=== PATIENT | female | born 1955 | race African-American/Black ===

== ENCOUNTER 2016-10-16 15:58 | Inpatient (IN) ==
[2016-10-16] MEDS ORDERED: ALBUTEROL/IPRATROPIUM 3 ML NEB RESP TX STA (16:27)
--- NOTE | 2016-10-16 16:33 | Emergency Department Note ---
Arrival - Arrival Chief Complaint: Shortness of Breath Stated Complaint: SWELLING, MISSED WHOLE WEEK OF DIALYSIS ED Nursing Triage Note: patient states that she is sob. states that she is on dialysis and hasn't had dialysis for a week. she is from [place] and has recently located here Mode of Arrival: Wheelchair Limitations: No Limitations Source: Patient Time Seen by Provider: 10/16/16 16:27 - History of Present Illness HPI Narrative: This 61-year-old black female presents after relocating from [place] without any dialysis for the past week, complaining of shortness of breath. The patient has had progressive dyspnea on exertion, dyspnea at rest, PND, orthopnea, and mild peripheral edema over the last week since her last dialysis. The patient states she had to relocate in a hurry and is thus not set up with any dialysis situation in our area. She denies any chest pain in association with this. Of note she likewise has a history of a brain tumor which she relates is not cancerous but was associated with some swelling for which she took medication as recently as this fall but is on nothing now. She does state she does have frequent headaches but no focal deficits or visual changes. Currently in bed at rest she is in no acute distress. Onset (ago): week(s) (1 week since progressive onset of symptoms) Consistency: constant Severity: moderate Allergies/Adverse Reactions: Allergies Allergy/AdvReac Type Severity Reaction Status Date / Time allopurinol AdvReac Unknown/Unable Verified 12/30/15 07:15 to obtain naproxen AdvReac Unknown/Unable Verified 12/30/15 07:15 to obtain Home Medications: Home Medications Medication Instructions Recorded Confirmed Type Acetaminophen Tab [Tylenol Tab] 650 mg PO Q4H PRN 10/16/16 10/16/16 History Amlodipine Besylate 5 mg PO DAILY 10/16/16 10/16/16 History Calcium Acetate [Phoslo] 2,001 mg PO TID W/MEALS 10/16/16 10/16/16 History Calcium Acetate [Phoslo] 667 - 1,334 mg PO WITH SNACKS 10/16/16 10/16/16 History Carvedilol 12.5 mg PO BID 10/16/16 10/16/16 History Divalproex ER [Depakote ER] 500 mg PO BID 10/16/16 10/16/16 History Gabapentin Cap/Tab [Neurontin 100 mg PO DAILY 10/16/16 10/16/16 History Cap/Tab] Omeprazole 20 mg PO DAILY 10/16/16 10/16/16 History Review of System - Review of System 12 point system: reviewed and no additional remarkable complaints except as stated - Review of System Constitutional: Present: as per HPI Respiratory: Present: as per HPI Gastrointestinal: Present: as per HPI Neurological: Present: as per HPI Medical,Surgical,& Family Hx - Medical History Neurology: History of: Cerebrovascular Accident Renal: History of: Dialysis (Tuesday, , Saturdays), Renal Failure Musculoskeletal: History of: Back/Neck Problems - Social History Smoking Status: Never smoker Frequency of Alcohol Use: None Type of Drug Use: None Exam Physical Examination: GENERAL: Obese black female in no acute distress. HEENT: Normocephalic. No trauma. Moist mucous membranes. EOMI. PERRLA. NECK: Supple. No adenopathy. JVD to the angle of the jaw at 30 CARDIAC: Regular. No murmurs. Heart rate 68 CHEST: Clear to auscultation. No respiratory distress. O2 sat 93% ABDOMEN: Soft. Nontender. Active bowel sounds. EXTREMITIES: No trauma. Normal ROM. No pedal edema. Fistula right upper extremity with good thrill SKIN: No diaphoresis. No rash. NEURO: Alert. Oriented 3. Motor, sensory, vibratory intact. No focal deficits. Vital Signs: Vital Signs Temperature 97.9 F 10/16/16 16:07 Pulse Rate 69 10/16/16 16:24 Respiratory Rate 16 10/16/16 16:24 Blood Pressure 173/98 10/16/16 16:24 O2 Sat by Pulse Oximetry 94 L 10/16/16 16:24 Course - Reevaluation(s) Reevaluation #1: Advised patient she would have to be admitted for dialysis - Consultations Consultation #1: Admitted to hospitalist service for further evaluation and treatment. Procedures - Central Line Placement Right Femoral Consent Obtained: written consent Time Out Performed: Yes Patient Placed on Monitor/Pulse Ox: Yes Prep: mask, gown, gloves Central Line Prep: Povidone-Iodine 1% Local Anesthetic: lidocaine 1% Amount of anesthesia used (mL): 6 Ultrasound Used for Placement: No Central Line Lumen Inserted: triple Post Procedure: sutured in place, good blood return, all ports aspirated, flushed, capped, sterile dressing applied Results - Labs CBC & BMP: 10/16/16 16:40 10/16/16 16:40 - Impressions EKG: Sinus rhythm at 64. Normal [place] interval QRS duration. Nonspecific ST changes. No acute injury pattern noted. - Diagnostic Findings Procedure: Chest x-ray: image reviewed by me, report reviewed by me ( cardiomegaly without pulmonary edema.) Disposition Clinical Impression: chronic renal failure, congestive heart failure, dialysis dependent, hypertension Case discussed with: patient, patient's family Disposition: Still a Patient Condition: Guarded Time of Disposition: 18:38
[2016-10-16 16:51] LABS: Basophils % 0.3 % (0.0-0.8); Eosinophils # 0.2 10*3/uL (0.0-0.87); Eosinophils % 2.5 % (0.00-10.9); Hematocrit 25.7 VOL% (35.7-47.0); Hemoglobin 7.8 GM/DL (12.0-16.0); Immature Granulocytes % 0.7 %; Immature Granulocytes Absolute 0.04 #; Lymphocytes # 1.1 10*3/uL (1.4-4.0); Mean Corpuscular HGB Conc 30.4 GM/DL (32-36); Mean Corpuscular Hemoglobin 33 PG (27-34); Mean Corpuscular Volume 109.8 FL (87-102); Mean Platelet Volume 10.3 FL (9.6-12.0); Monocytes # 0.7 10*3/uL (0.11-0.8); Neutrophils # 3.9 10*3/uL (1.4-7.4); Neutrophils % 65.5 % (38.7-73.9); Platelet Count 180 10*3/uL (130-400); Red Blood Count 2.34 10*6/uL (3.8-5.5); Red Cell Distribution Width 16.8 % (9.3-17.3); White Blood Count 5.9 10*3/uL (4.5-13.71)
--- NOTE | 2016-10-16 16:56 | CT Report ---
CT head/brain wo con Indication: Headache. CT BRAIN WITHOUT CONTRAST DLP: 1073 mGy*cm Comparison: None. Date of admission: 10/16/2016. Technique: Axial noncontrast CT images of the brain were obtained. Findings: Partially calcified dural based mass involves the anterior portion of the left middle fossa, measuring 20 mm diameter. There are some mild adjacent white matter edema. This is likely a meningioma. No midline shift. No obstructive hydrocephalus. No acute hemorrhage. Generalized atrophy is present, mild. Cortical cheek-white junction is maintained. No destructive bone lesions. Visualized sinuses are clear. Impression: Evidence of a likely meningioma, consisting of a 20 mm partially calcified left middle fossa, extra-axial and likely dural based mass with mild adjacent edema of the brain. No significant mass effect or obstructive hydrocephalus. No acute intracranial pathology is shown. PROCEDURE INTERPRETED AT [facility] DEPARTMENT OF RADIOLOGY Final Report Signed by: Reed Todd M.D.
[2016-10-16 17:03] LABS: PT Patient Result 10.9 SECS; Partial Thromboplastin Time 25.7 SECS (0-40)
--- NOTE | 2016-10-16 17:03 | EKG Report ---
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
[2016-10-16 17:10] LABS: Albumin 3.2 G/DL (3.4-5.0); Bilirubin,Total 0.4 MG/DL (0.2-1.0); Calcium 7.8 MG/DL (8.5-10.1); Osmolality,Calculated 327.7 MOS/KG (273-304); Total Protein 6.7 G/DL (6.4-8.3); Troponin I Only 0.038 NG/ML (0.00-0.045)
--- NOTE | 2016-10-16 17:12 | XRay Report ---
XR chest 1V portable Indication: Shortness of breath. Chest one view: Comparison 12/30/2015. Increased infrahilar/bibasilar strand-like opacities now present, worse on the right, concerning for early pneumonia. Heart size remains normal. Mid and upper lungs are clear. Multiple surgical clips right arm suggest dialysis access. Impression: Early bilateral infrahilar pneumonia versus atelectasis. PROCEDURE INTERPRETED AT [facility] DEPARTMENT OF RADIOLOGY Final Report Signed by: Reed Todd M.D.
[2016-10-16 17:14] LABS: Potassium 6.5 MMOL/L (3.5-5.1)
[2016-10-16] MEDS ORDERED: ALBUTEROL NEB SOLN 5 MG/ML 20 ML/BOTTLE CONT NEB STA (17:15)
[2016-10-16] MEDS ORDERED: SODIUM POLYSTYRENE SULFATE 15 GM/60 ML BOTTLE PO STA (17:16)
[2016-10-16] MEDS ORDERED: SODIUM POLYSTYRENE SULFATE 15 GM/60 ML BOTTLE ONE (17:35)
[2016-10-16 17:43] LABS: ABG PCO2 40.4 MM HG (35-48); ABG PH 7.374 (7.35-7.45); Allen Test Positive; Pt O2 Delivery Device Room Air
[2016-10-16 17:44] LABS: ABG Oxygen Saturation 90.9 % (95-100); ABG PO2 67.6 MM HG (80-95); ABG TCO2 24.3 MMOL/L (23-27)
[2016-10-16] MEDS ORDERED: CALCIUM CHLORIDE 1,000 MG/10 ML SYRINGE IV STA (17:53)
[2016-10-16] MEDS ORDERED: INSULIN REGULAR 100 UNIT/ML IV STA (17:53)
[2016-10-16] MEDS ORDERED: DEXTROSE 50% 25 GM/50 ML VIAL IV STA (17:53)
[2016-10-16] MEDS ORDERED: SODIUM BICARBONATE 50 MEQ/50 ML VIAL IV STA (17:53)
[2016-10-16] MEDS ORDERED: CALCIUM CHLORIDE 1,000 MG/10 ML SYRINGE IV ONE (17:59)
[2016-10-16] MEDS ORDERED: SODIUM BICARBONATE 50 MEQ/50 ML VIAL IV ONE (18:00)
[2016-10-16] MEDS ORDERED: DEXTROSE 50% 25 GM/50 ML VIAL IV ONE (18:00)
[2016-10-16] MEDS ORDERED: INSULIN REGULAR 100 UNIT/ML ONE (18:16)
[2016-10-16] MEDS ORDERED: ONDANSETRON 4 MG/2 ML VIAL IV PRN (18:40)
--- NOTE | 2016-10-16 19:51 | Hospitalist History & Physical ---
Assessment and Plan (1) Fluid overload Status: Acute Assessment and plan: due to skipping of dialysis. Plan -Nephrology consult for immediate dialysis -nebs treatment prn -oxygen treatment Current Visit: Yes (2) Acute respiratory distress Status: Acute Assessment and plan: due to fluid overload vs pneumonia vs atelectasis -will arrange diaysis-Nephrology to advise -IV antibiotics -oxygen and nebs treatment -sputum cultures Current Visit: Yes (3) CAP (community acquired pneumonia) Status: Acute Assessment and plan: will start IV Rocephin and Azithromax po -sputum cultures -nebs treatment Current Visit: Yes (4) ESRD (end stage renal disease) Status: Acute Assessment and plan: resume regular hemo dialysis- routinely done // Current Visit: Yes (5) HTN (hypertension) Status: Acute Assessment and plan: poorly controlled, will resume meds and adjust doses Current Visit: Yes (6) CVA (cerebral vascular accident) Status: Acute Assessment and plan: with mild right sided residual weakness- -consider low dose aspirin if ok with neurology in view of the brain mass -PT consult Current Visit: Yes (7) Meningioma Status: Acute Assessment and plan: will get Neuro to see,this is not new, will continue with depakote. -Depakote level Current Visit: Yes History of Present Illness Chief complaint: SOB History of present illness: Ms. Villalobos is a 61 year old female with ESRD on HD on , CVA, HTN who had just relocated from [place] to [place]. She relocated in a hurry, so she was unable to sort out her dialysis situation on time leading to skipping of her hemo dialysis sessions for about 10days. She started having SOB, dysnea, orthopnea, wheezing, coughing with peripheral edema all which progressively worsened so she was brought to the ER today for evaluation.She denies associated chest pain, tightness, no fever but had some chills. Upon arrival to the ER, her blood pressure was 224/107, CXR showed early bilateral infrahilar pneumonia vs atelectasis. CT head showed an evidence of a possible meningioma which measures about 20mm-this is not new for patient.She has occasional headaches but denies nausea and vomiting. Home Medications Medication Instructions Recorded Confirmed Type Acetaminophen Tab [Tylenol Tab] 650 mg PO Q4H PRN 10/16/16 10/16/16 History Amlodipine Besylate 5 mg PO DAILY 10/16/16 10/16/16 History Calcium Acetate [Phoslo] 2,001 mg PO TID W/MEALS 10/16/16 10/16/16 History Calcium Acetate [Phoslo] 667 - 1,334 mg PO WITH SNACKS 10/16/16 10/16/16 History Carvedilol 12.5 mg PO BID 10/16/16 10/16/16 History Divalproex ER [Depakote ER] 500 mg PO BID 10/16/16 10/16/16 History Gabapentin Cap/Tab [Neurontin 100 mg PO DAILY 10/16/16 10/16/16 History Cap/Tab] Omeprazole 20 mg PO DAILY 10/16/16 10/16/16 History Allergies Allergy/AdvReac Type Severity Reaction Status Date / Time allopurinol AdvReac Unknown/Unable Verified 12/30/15 07:15 to obtain naproxen AdvReac Unknown/Unable Verified 12/30/15 07:15 to obtain Medical,Surgical,& Family Hx - Medical History Neurology: History of: Cerebrovascular Accident Renal: History of: Dialysis (Tuesday, , Saturdays), Renal Failure Musculoskeletal: History of: Back/Neck Problems - Social History Smoking Status: Never smoker Frequency of Alcohol Use: None Type of Drug Use: None 12 point system: reviewed and no additional remarkable complaints except as stated Exam - Constitutional General appearance: mild distress - Head Head exam: Present: normal inspection - Respiratory Respiratory exam: Present: decreased breath sounds - Cardiovascular Cardiovascular exam: Present: regular rate and rhythm - GI/Abdominal GI/Abdominal exam: Present: normal bowel sounds - Extremities Exam Extremities exam: Present: edema Results - Labs CBC & BMP: 10/16/16 16:40 10/16/16 16:40 Lab Results: I have reviewed the past 24 hour labs
--- NOTE | 2016-10-16 21:03 | XRay Report ---
XR KUB Indication: Pain. Abdomen 2 views: Right groin central line is present. Right quadrant surgical clips are present. Increased stool is present throughout colon. No small bowel dilatation shown. No suggestion of free air. Impression: Constipation. Central line right groin. PROCEDURE INTERPRETED AT [facility] DEPARTMENT OF RADIOLOGY Final Report Signed by: Reed Todd M.D.
[2016-10-16] MEDS: ENOXAPARIN 30 MG/0.3 ML SYRINGE SUBCUT SCH (22:42)
[2016-10-16] MEDS: DIVALPROEX ER 500 MG TABLET PO SCH (22:43)
[2016-10-16] MEDS: cefTRIAXone 1,000 MG in SODIUM CHLORIDE 0.9% 100 ML IV SCH (22:43)
[2016-10-16] MEDS: CARVEDILOL 12.5 MG TABLET PO SCH (22:43)
[2016-10-16 23:13] LABS: Free T4 (Free Thyroxine) 0.78 NG/DL (0.76-1.46); Magnesium 2.7 MG/DL (1.8-2.4); Risk Ratio 2.55; Thyroid Stimulating Hormone 6.34 uIU/ml (0.358-3.74); VLDL CHOLESTEROL 12.8 MG/DL
[2016-10-17] MEDS ORDERED: PANTOPRAZOLE 40 MG TABLET PO SCH (09:00)
[2016-10-17] MEDS: AZITHROMYCIN 250 MG TABLET PO SCH (09:04)
[2016-10-17] MEDS: DIVALPROEX ER 500 MG TABLET PO SCH ×2 (09:04→21:23)
[2016-10-17] MEDS: CARVEDILOL 12.5 MG TABLET PO SCH ×2 (09:04→21:23)
[2016-10-17] MEDS: PANTOPRAZOLE 40 MG TABLET PO SCH (09:04)
[2016-10-17] MEDS: CALCIUM ACETATE 667 MG CAPSULE PO SCH ×4 (09:04→16:20)
[2016-10-17] MEDS: amLODIPine 5 MG TABLET PO SCH (09:04)
[2016-10-17] MEDS: GABAPENTIN 100 MG CAPSULE PO SCH (09:05)
[2016-10-17 09:26] LABS: Calcium 7.6 MG/DL (8.5-10.1); Osmolality,Calculated 333.6 MOS/KG (273-304); Potassium 5.7 MMOL/L (3.5-5.1)
--- NOTE | 2016-10-17 09:39 | Nephrology Consult Note ---
History of Present Illness Chief complaint: end-stage renal status History of present illness: Ms. Villalobos is a 61 year old female with end-stage renal disease who has been dialyzing in [place], she moved down here about a week ago without any arrangements for dialysis. The patient presented to the emergency room last night with complaints of difficulty ambulating and having some shortness of breath. The patient was found to have a potassium 6.5 at that time. She was treated with Kayexalate and calcium infusion. The patient was hoping to get admitted to achieve the dialysis unit, this has proven difficult for her. The patient also has complaints of a brain tumor and states she has been taking some medication to reduce the swelling of this. She also complains of having increased difficulty ambulating the past 6 months. She reports having fallen about a couple weeks ago hitting her left side and complains of a swelling in this area as well. ROS: Head -occasional headaches ENT - denies sore throat Lymphatics - denies lymphadenopathy Hematology - denies bleeding problems Heart - denies chest pain Lungs -positive shortness of breath Abdomen - denies abdominal pain Musculoskeletal -complains of pain in her right shoulder and also having arthritis, she also complains of pain in her right upper arm or her fistula rubs against her chest Skin - denies rash Neurology -positive stroke General -positive fever PE: General: in no acute distress Eyes: Pupils are round and reactive, conjunctivae are clear ENT: Nose is clear, O/P is benign Neck: Supple, no thyromegaly Lymphatics: No cervical, supraclavicular or axillary adenopathy Heart: Regular rate and rhythm, trace to 1+ pretibial edema, her right arm fistula has a good bruit she does have some outpouching areas overlying this area but there is no inflammation Lungs: She has some mild his story wheeze, chest expansion symmetric Abdomen: Soft, normoactive bowel sounds, no hepatomegaly, obese Musculoskeletal: No joint erythema or effusions or joint asymmetry Skin: Normal turgor, normal hydration, no rash Neuro/Psych: Alert and cooperative with poor insight Home Medications Medication Instructions Recorded Confirmed Type Acetaminophen Tab [Tylenol Tab] 650 mg PO Q4H PRN 10/16/16 10/16/16 History Amlodipine Besylate 5 mg PO DAILY 10/16/16 10/16/16 History Calcium Acetate [Phoslo] 2,001 mg PO TID W/MEALS 10/16/16 10/16/16 History Calcium Acetate [Phoslo] 667 - 1,334 mg PO WITH SNACKS 10/16/16 10/16/16 History Carvedilol 12.5 mg PO BID 10/16/16 10/16/16 History Divalproex ER [Depakote ER] 500 mg PO BID 10/16/16 10/16/16 History Gabapentin Cap/Tab [Neurontin 100 mg PO DAILY 10/16/16 10/16/16 History Cap/Tab] Omeprazole 20 mg PO DAILY 10/16/16 10/16/16 History Allergies Allergy/AdvReac Type Severity Reaction Status Date / Time allopurinol AdvReac Unknown/Unable Verified 12/30/15 07:15 to obtain naproxen AdvReac Unknown/Unable Verified 12/30/15 07:15 to obtain Medical,Surgical,& Family Hx - Medical History Cardio: History of: Hypertension Neurology: History of: Cerebrovascular Accident Renal: History of: Dialysis (Tuesday, , Saturdays), Renal Failure Musculoskeletal: History of: Back/Neck Problems - Surgical History Neurologic Surgeries: Comment Only: Neurologic Surgery (pt currently has a brain tumor) Abdominal Surgeries: Surgical HX of: Cholecystectomy Additional Surgical History: Partial hysterectomy - Family History Family History: Reports;: Family Hypertension - Social History Smoking Status: Former smoker Frequency of Alcohol Use: None Type of Drug Use: None Exam - Vital Signs Vital signs: Period Temp Pulse Resp BP Sys/Flores Pulse Ox Last 24 Hr 96.8 F-98.1 F 64-73 16-19 117-162/73-92 90-100 Results - Labs CBC & BMP: 10/16/16 16:40 10/16/16 16:40 Assessment and Plan (1) Hyperkalemia Status: Acute Assessment and plan: We'll follow-up the patient's potassium, her EKG did not show any peaked T waves , we will re-dose with Kayexalate as needed for potassium of greater than 6. Current Visit: Yes (2) Hematoma of left flank Status: Acute Current Visit: Yes (3) ESRD (end stage renal disease) Status: Acute Assessment and plan: We will plan on hemodialysis tomorrow, I spoke to the patient about her outpatient dialysis she wishes to dialyze him [place] [facility] however this may prove difficult to get her in the [place] [facility], if this cannot be arranged in a timely fashion we could dialyze her in [facility]. Current Visit: Yes (4) Fluid overload Status: Acute Assessment and plan: Patient is breathing okay presently with supplemental O2 Current Visit: Yes (5) HTN (hypertension) Status: Acute Assessment and plan: Continue present medications Current Visit: Yes (6) Meningioma Status: Acute Current Visit: Yes
--- NOTE | 2016-10-17 12:51 | Hospitalist Progress Note ---
Assessment and Plan (1) Fluid overload Status: Acute Assessment and plan: due to skipping of dialysis. Plan -Nephrology has seen, wants to dialyse in am -nebs treatment prn -oxygen treatment Current Visit: Yes (2) Acute respiratory distress Status: Acute Assessment and plan: due to fluid overload vs pneumonia vs atelectasis -for diaysis in am continue IV antibiotics -oxygen and nebs treatment -sputum cultures Current Visit: Yes (3) CAP (community acquired pneumonia) Status: Acute Assessment and plan: on IV Rocephin and Azithromax po -follow sputum cultures -nebs treatment Current Visit: Yes (4) ESRD (end stage renal disease) Status: Acute Assessment and plan: resume regular hemo dialysis- routinely done M// Current Visit: Yes (5) HTN (hypertension) Status: Acute Assessment and plan: better controlled, continue current regime Current Visit: Yes (6) CVA (cerebral vascular accident) Status: Acute Assessment and plan: with mild right sided residual weakness- -consider low dose aspirin if ok with neurology in view of the brain mass -PT consult Current Visit: Yes (7) Meningioma Status: Acute Assessment and plan: will get Neuro to see,this is not new, will continue with depakote. -Depakote level Current Visit: Yes (8) Hyperkalemia Status: Acute Assessment and plan: no EKG changes, s/p kayexalate, continue with Nephrology's input Current Visit: Yes Hospitalist: Subjective Interval history: Patient seen. No new complaint Exam - Constitutional Vitals: Period Temp Pulse Resp BP Sys/Flores Pulse Ox Last 24 Hr 96.8 F-98.1 F 64-73 16-19 117-162/73-92 90-100 General appearance: no acute distress - Head Head exam: Present: normal inspection - Respiratory Respiratory exam: Present: clear to auscultation bilaterally - Cardiovascular Cardiovascular exam: Present: regular rate and rhythm - GI/Abdominal GI/Abdominal exam: Present: normal bowel sounds - Extremities Exam Extremities exam: Present: other (mild right sided weakness) Results - Labs CBC & BMP: 10/16/16 16:40 10/17/16 08:37 Lab Results: I have reviewed the past 24 hour labs
--- NOTE | 2016-10-17 13:35 | Ultrasound Report ---
US venous doppler UE RT Indication: Arm pain. Right upper extremity DVT ultrasound: Grayscale, color Doppler and pulse Doppler waveform interrogation of the right arm and neck region performed. The right internal jugular vein is narrowed, likely from prior catheter placement. No thrombus within the right internal jugular, subclavian, cephalic, and brachial veins. Basilic veins are identified. AV fistula for dialysis is patent. Impression: Patent AV fistula. Catheter related stenosis right IJ. No DVT. PROCEDURE INTERPRETED AT [facility] DEPARTMENT OF RADIOLOGY Final Report Signed by: Reed Todd M.D.
[2016-10-17] MEDS: cefTRIAXone 1,000 MG in SODIUM CHLORIDE 0.9% 100 ML IV SCH (21:23)
[2016-10-17] MEDS: ENOXAPARIN 30 MG/0.3 ML SYRINGE SUBCUT SCH (21:23)
[2016-10-18 06:28] LABS: Basophils % 0.4 % (0.0-0.8); Eosinophils # 0.2 10*3/uL (0.0-0.87); Eosinophils % 3.3 % (0.00-10.9); Hematocrit 23.1 VOL% (35.7-47.0); Hemoglobin 7.1 GM/DL (12.0-16.0); Immature Granulocytes % 0.7 %; Immature Granulocytes Absolute 0.04 #; Lymphocytes # 1.3 10*3/uL (1.4-4.0); Lymphocytes % 23.1 % (21.3-54.2); Mean Corpuscular HGB Conc 30.7 GM/DL (32-36); Mean Corpuscular Hemoglobin 34 PG (27-34); Mean Platelet Volume 10.2 FL (9.6-12.0); Monocytes # 0.8 10*3/uL (0.11-0.8); Monocytes % 14.5 % (1.7-12.7); Neutrophils # 3.2 10*3/uL (1.4-7.4); Platelet Count 179 10*3/uL (130-400); Red Blood Count 2.12 10*6/uL (3.8-5.5); Red Cell Distribution Width 16.9 % (9.3-17.3); White Blood Count 5.5 10*3/uL (4.5-13.71)
[2016-10-18 06:56] LABS: Calcium 7.8 MG/DL (8.5-10.1); Magnesium 2.8 MG/DL (1.8-2.4); Osmolality,Calculated 329.7 MOS/KG (273-304); Potassium 5.8 MMOL/L (3.5-5.1)
[2016-10-18] MEDS: CARVEDILOL 12.5 MG TABLET PO SCH ×2 (08:59→20:52)
[2016-10-18] MEDS: AZITHROMYCIN 250 MG TABLET PO SCH (08:59)
[2016-10-18] MEDS: GABAPENTIN 100 MG CAPSULE PO SCH (08:59)
[2016-10-18] MEDS: DIVALPROEX ER 500 MG TABLET PO SCH ×2 (08:59→20:51)
[2016-10-18] MEDS: PANTOPRAZOLE 40 MG TABLET PO SCH (08:59)
[2016-10-18] MEDS: amLODIPine 5 MG TABLET PO SCH (08:59)
[2016-10-18] MEDS: CALCIUM ACETATE 667 MG CAPSULE PO SCH ×3 (08:59→17:05)
[2016-10-18] MEDS ORDERED: EPOETIN ALFA 10,000 UNIT/1 ML VIAL IV PRN (10:20)
--- NOTE | 2016-10-18 10:20 | Nephrology Progress Note ---
Nephrology - PN: Subj Interval history: Patient reports breathing okay today. Review of systems GI she complains of some cramping in her stomach but denies nausea or vomiting Physical exam general the patient's in no acute distress Assessment/plan 1. End-stage renal disease-patient for dialysis today 2. Hyperkalemia this should improve with dialysis 3. Hypertension continue present antihypertensives 4. Anemia-I'm going to give her EPO on dialysis. Exam (PN)-Nephrology - Vital Signs Vital signs: Period Temp Pulse Resp BP Sys/Flores Pulse Ox Last 24 Hr 98.1 F-98.6 F 62-68 18-20 152-192/76-95 97-100 - Lab 10/18/16 05:32 10/18/16 05:32 Most recent lab results ABG pH 7.374 (7.35-7.45) 10/16/16 17:10 ABG pCO2 40.4 MM HG (35-48) 10/16/16 17:10 ABG pO2 67.6 MM HG (80-95) L 10/16/16 17:10 ABG HCO3 23.0 MMOL/L (20-26) 10/16/16 17:10 ABG O2 Saturation 90.9 % (95-100) L 10/16/16 17:10 Calcium 7.8 MG/DL (8.5-10.1) L 10/18/16 05:32 Magnesium 2.8 MG/DL (1.8-2.4) H 10/18/16 05:32 Assessment and Plan (1) Hyperkalemia Status: Acute Assessment and plan: We'll follow-up the patient's potassium, her EKG did not show any peaked T waves , we will re-dose with Kayexalate as needed for potassium of greater than 6. Current Visit: Yes (2) Hematoma of left flank Status: Acute Current Visit: Yes (3) ESRD (end stage renal disease) Status: Acute Assessment and plan: We will plan on hemodialysis tomorrow, I spoke to the patient about her outpatient dialysis she wishes to dialyze him [facility] however this may prove difficult to get her in the [place] clinic, if this cannot be arranged in a timely fashion we could dialyze her in [facility]. Current Visit: Yes (4) Fluid overload Status: Acute Assessment and plan: Patient is breathing okay presently with supplemental O2 Current Visit: Yes (5) HTN (hypertension) Status: Acute Assessment and plan: Continue present medications Current Visit: Yes (6) Meningioma Status: Acute Current Visit: Yes
--- NOTE | 2016-10-18 11:17 | Hospitalist Progress Note ---
Assessment and Plan (1) Fluid overload Status: Acute Assessment and plan: due to skipping of dialysis. Plan -Nephrology has seen, for hemodialysis this am -nebs treatment prn -oxygen treatment Current Visit: Yes (2) Acute respiratory distress Status: Acute Assessment and plan: due to fluid overload vs pneumonia vs atelectasis -for dialysis today, continue IV antibiotics -oxygen and nebs treatment -sputum cultures Current Visit: Yes (3) CAP (community acquired pneumonia) Status: Acute Assessment and plan: on IV Rocephin and Azithromax po -follow sputum cultures -nebs treatment Current Visit: Yes (4) ESRD (end stage renal disease) Status: Acute Assessment and plan: resume regular hemo dialysis- routinely done M/W/ Current Visit: Yes (5) HTN (hypertension) Status: Acute Assessment and plan: better controlled, continue current regime Current Visit: Yes (6) CVA (cerebral vascular accident) Status: Acute Assessment and plan: with mild right sided residual weakness- -consider low dose aspirin if ok with neurology in view of the brain mass -PT consult Current Visit: Yes (7) Meningioma Status: Acute Assessment and plan: Neuro to see,this is not new, will continue with depakote. -Depakote level Current Visit: Yes (8) Hyperkalemia Status: Acute Assessment and plan: no EKG changes, s/p kayexalate, continue with Nephrology's input Current Visit: Yes Hospitalist: Subjective Interval history: patient seen, she was going for her dialysis this am. No new complaints. Exam - Constitutional Vitals: Period Temp Pulse Resp BP Sys/Flores Pulse Ox Last 24 Hr 96.8 F-98.6 F 62-68 18-20 152-192/76-95 97-100 General appearance: no acute distress - Respiratory Respiratory exam: Present: decreased breath sounds - Cardiovascular Cardiovascular exam: Present: regular rate and rhythm - GI/Abdominal GI/Abdominal exam: Present: normal bowel sounds - Extremities Exam Extremities exam: Present: edema Results - Labs CBC & BMP: 10/18/16 05:32 10/18/16 05:32 Lab Results: I have reviewed the past 24 hour labs
[2016-10-18 12:07] LABS: Hepatitis A Ab IgM Quant 0.39 Index; Hepatitis A Ab IgM Result Negative (Negative); Hepatitis B Core IgM Quant 0.17 Index; Hepatitis B Core IgM Result Negative (Negative); Hepatitis B Surface Ag Quant < 0.10 Index; Hepatitis B Surface Ag Result Negative (Negative); Hepatitis C Virus Ab Quant 0.06 Index; Hepatitis C Virus Ab Result Negative (Negative)
--- NOTE | 2016-10-18 13:51 | Dialysis Note ---
Dialysis Note - Dialysis Note Patient seen on dialysis she's tolerating the procedure. Blood pressure noted be 159/62.
[2016-10-18] MEDS: ACETAMINOPHEN 325 MG TABLET PO PRN ×2 (16:36→22:23)
--- NOTE | 2016-10-18 16:36 | Event Note ---
Patient gone for dialysis
[2016-10-18] MEDS: ENOXAPARIN 30 MG/0.3 ML SYRINGE SUBCUT SCH (20:52)
[2016-10-18] MEDS: cefTRIAXone 1,000 MG in SODIUM CHLORIDE 0.9% 100 ML IV SCH (20:55)
[2016-10-19 06:18] LABS: Basophils % 0.4 % (0.0-0.8); Eosinophils # 0.1 10*3/uL (0.0-0.87); Eosinophils % 2.6 % (0.00-10.9); Hematocrit 22.1 VOL% (35.7-47.0); Immature Granulocytes % 0.9 %; Immature Granulocytes Absolute 0.04 #; Lymphocytes # 1.1 10*3/uL (1.4-4.0); Lymphocytes % 23.9 % (21.3-54.2); Mean Corpuscular HGB Conc 31.7 GM/DL (32-36); Mean Corpuscular Hemoglobin 35 PG (27-34); Mean Corpuscular Volume 109.4 FL (87-102); Mean Platelet Volume 9.6 FL (9.6-12.0); Monocytes # 0.8 10*3/uL (0.11-0.8); Monocytes % 16.8 % (1.7-12.7); Neutrophils # 2.6 10*3/uL (1.4-7.4); Neutrophils % 55.4 % (38.7-73.9); Platelet Count 165 T/CUMM (130-400); Red Blood Count 2.02 MC/CUMM (3.8-5.5); White Blood Count 4.6 T/CUMM (4-12)
[2016-10-19 06:41] LABS: Band Neutrophils 2 % (0-10); Eosinophils 2 % (0-10); Hypochromasia 1+; Lymphocytes 21 % (20-55); Metamyelocytes 1 %; Nucleated Red Blood Cells 1 (0-5); Segmented Neutrophils 58 % (50-85); Total Cells Counted 100
[2016-10-19 06:42] LABS: Macrocytosis 1+; Platelet Estimate Adequate
[2016-10-19 06:48] LABS: Calcium 7.6 MG/DL (8.5-10.1); Potassium 4.8 MMOL/L (3.5-5.1)
[2016-10-19] MEDS: GABAPENTIN 100 MG CAPSULE PO SCH (08:44)
[2016-10-19] MEDS: CALCIUM ACETATE 667 MG CAPSULE PO SCH ×3 (08:44→16:50)
[2016-10-19] MEDS: AZITHROMYCIN 250 MG TABLET PO SCH (08:44)
[2016-10-19] MEDS: PANTOPRAZOLE 40 MG TABLET PO SCH (08:45)
[2016-10-19] MEDS: amLODIPine 5 MG TABLET PO SCH (08:45)
[2016-10-19] MEDS: DIVALPROEX ER 500 MG TABLET PO SCH ×2 (08:45→20:18)
[2016-10-19] MEDS: CARVEDILOL 12.5 MG TABLET PO SCH ×2 (08:45→20:18)
[2016-10-19] MEDS: ACETAMINOPHEN 325 MG TABLET PO PRN (08:48)
--- NOTE | 2016-10-19 10:28 | Hospitalist Progress Note ---
Addendum entered and electronically signed by Perla Sequeira NP 10/19/16 10:57: D/w Dr. Shepard, Nephrology. Her transfusion will be held today and she will have this done tomorrow while on dialysis. I have let Lindy, RN know and have put a message to caregiver in as well. Original Note: <Perla Sequeira - Last Filed: 10/19/16 10:26> Assessment and Plan - Time spent with patient Time spent with patient: Less than 30 minutes (due to assessment, plan and doc) (1) Acute respiratory distress Status: Acute Current Visit: Yes (2) CAP (community acquired pneumonia) Status: Acute Current Visit: Yes (3) ESRD (end stage renal disease) Status: Acute Current Visit: Yes (4) Fluid overload Status: Acute Current Visit: Yes (5) HTN (hypertension) Status: Acute Current Visit: Yes (6) Hyperkalemia Status: Acute Current Visit: Yes (7) Meningioma Status: Acute Current Visit: Yes Hospitalist: Subjective Interval history: Ms. Merlos was in the restroom this morning on rounds. She states that she feels okay. Her H/h is low at 7/23. We will transfuse 2 uniist of PRBC's today. We are awaiting Dr. Agustin's evaluation. Hope for discharge tomorrow. [facility] has been set up in [place] per Quality Control Assistant/Case Management notes. Will continue to follow. Exam - Constitutional Vitals: Period Temp Pulse Resp BP Sys/Flores Pulse Ox Last 24 Hr 96.5 F-98.3 F 65-68 16-18 134-162/78-90 92-98 General appearance: no acute distress, over weight - Head Head exam: Present: normal inspection, normocephalic - Eye Eye exam: Present: EOMI. Absent: scleral icterus Pupils: Present: ARNOL, normal accommodation - ENT ENT exam: Present: normal exam, normal oropharynx - Neck Neck exam: Present: normal inspection. Absent: lymphadenopathy - Extremities Exam Extremities exam: Absent: edema - Back Exam Back exam: Present: normal inspection. Absent: muscle spasm - Neurological Exam Neurological exam: Present: alert, oriented X3 - Psychiatric Psychiatric exam: Present: normal affect, normal mood - Skin Skin exam: Present: normal color, warm, dry, intact Results - Labs CBC & BMP: 10/19/16 05:27 10/19/16 05:27 Lab Results: I have reviewed the past 24 hour labs <Radha Lino - Last Filed: 10/19/16 11:36> Assessment and Plan (1) Fluid overload Status: Acute Current Visit: Yes (2) Acute respiratory distress Status: Acute Current Visit: Yes (3) CAP (community acquired pneumonia) Status: Acute Current Visit: Yes (4) ESRD (end stage renal disease) Status: Acute Current Visit: Yes (5) HTN (hypertension) Status: Acute Current Visit: Yes (6) CVA (cerebral vascular accident) Status: Acute Current Visit: Yes (7) Meningioma Status: Acute Current Visit: Yes (8) Hyperkalemia Status: Acute Current Visit: Yes Hospitalist: Subjective Interval history: Patient gets confused occasionally, awaiting Neuro's input,will transfuse with HD in am Exam - Constitutional Vitals: Period Temp Pulse Resp BP Sys/Flores Pulse Ox Last 24 Hr 96.5 F-98.3 F 65-68 16-18 134-162/78-90 92-98 Results - Labs CBC & BMP: 10/19/16 05:27 10/19/16 05:27
[2016-10-19] MEDS ORDERED: SODIUM CHLORIDE 0.9% 250 ML IV PRN (10:34)
--- NOTE | 2016-10-19 10:58 | Nephrology Progress Note ---
Nephrology - PN: Subj Interval history: Patient denies shortness of breath. Review of systems GI she denies nausea or vomiting Physical exam general patient's in no acute distress Assessment/plan 1. End-stage renal disease-we'll continue hemodialysis support , we are getting her set up to dialyze in 2. Hyperkalemia this is better with dialysis 3. Hypertension this is controlled 4. Anemia-100 transfuse her 2 units of packed red blood cells with dialysis tomorrow Plan is for discharge tomorrow. Exam (PN)-Nephrology - Vital Signs Vital signs: Period Temp Pulse Resp BP Sys/Flores Pulse Ox Last 24 Hr 96.5 F-98.3 F 65-68 16-18 134-162/78-90 92-98 - Lab 10/19/16 05:27 10/19/16 05:27 Most recent lab results ABG pH 7.374 (7.35-7.45) 10/16/16 17:10 ABG pCO2 40.4 MM HG (35-48) 10/16/16 17:10 ABG pO2 67.6 MM HG (80-95) L 10/16/16 17:10 ABG HCO3 23.0 MMOL/L (20-26) 10/16/16 17:10 ABG O2 Saturation 90.9 % (95-100) L 10/16/16 17:10 Calcium 7.6 MG/DL (8.5-10.1) L 10/19/16 05:27 Magnesium 2.8 MG/DL (1.8-2.4) H 10/18/16 05:32 Assessment and Plan (1) Hyperkalemia Status: Acute Assessment and plan: We'll follow-up the patient's potassium, her EKG did not show any peaked T waves , we will re-dose with Kayexalate as needed for potassium of greater than 6. Current Visit: Yes (2) Hematoma of left flank Status: Acute Current Visit: Yes (3) ESRD (end stage renal disease) Status: Acute Assessment and plan: We will plan on hemodialysis tomorrow, I spoke to the patient about her outpatient dialysis she wishes to dialyze him [facility] however this may prove difficult to get her in the [facility], if this cannot be arranged in a timely fashion we could dialyze her in [facility]. Current Visit: Yes (4) Fluid overload Status: Acute Assessment and plan: Patient is breathing okay presently with supplemental O2 Current Visit: Yes (5) HTN (hypertension) Status: Acute Assessment and plan: Continue present medications Current Visit: Yes (6) Meningioma Status: Acute Current Visit: Yes
--- NOTE | 2016-10-19 15:13 | Neurology Consult Note ---
History of Present Illness History of present illness: Ms. Villalobos is a 61 year old black female with ESRD on HD on M//, CVA, HTN who had just relocated from [place] to [place]. She relocated in a hurry, so she was unable to sort out her dialysis situation on time leading to skipping of her hemo dialysis sessions for about 10days. She started having SOB, dysnea, orthopnea, wheezing, coughing with peripheral edema all which progressively worsened so she was brought to the ER today for evaluation.She denies associated chest pain, tightness, no fever but had some chills. Upon arrival to the ER, her blood pressure was 224/107, CXR showed early bilateral infrahilar pneumonia vs atelectasis. CT head showed an evidence of a possible meningioma which measures about 20mm-this is not new for patient. She has daily headaches but denies nausea and vomiting. Also h/o seizures but hasnt had any since last may 2016. Home Medications Medication Instructions Recorded Confirmed Type Acetaminophen Tab [Tylenol Tab] 650 mg PO Q4H PRN 10/16/16 10/16/16 History Amlodipine Besylate 5 mg PO DAILY 10/16/16 10/16/16 History Calcium Acetate [Phoslo] 2,001 mg PO TID W/MEALS 10/16/16 10/16/16 History Calcium Acetate [Phoslo] 667 - 1,334 mg PO WITH SNACKS 10/16/16 10/16/16 History Carvedilol 12.5 mg PO BID 10/16/16 10/16/16 History Divalproex ER [Depakote ER] 500 mg PO BID 10/16/16 10/16/16 History Gabapentin Cap/Tab [Neurontin 100 mg PO DAILY 10/16/16 10/16/16 History Cap/Tab] Omeprazole 20 mg PO DAILY 10/16/16 10/16/16 History Allergies Allergy/AdvReac Type Severity Reaction Status Date / Time allopurinol AdvReac Unknown/Unable Verified 12/30/15 07:15 to obtain naproxen AdvReac Unknown/Unable Verified 12/30/15 07:15 to obtain 12 point system: reviewed and no additional remarkable complaints except as stated Medical,Surgical,& Family Hx - Medical History Cardio: History of: Hypertension Neurology: History of: Cerebrovascular Accident Renal: History of: Dialysis ( , Saturdays), Renal Failure Musculoskeletal: History of: Back/Neck Problems - Surgical History Neurologic Surgeries: Comment Only: Neurologic Surgery (pt currently has a brain tumor) Abdominal Surgeries: Surgical HX of: Cholecystectomy - Family History Family History: Reports;: Family Hypertension - Social History Smoking Status: Former smoker Frequency of Alcohol Use: None Type of Drug Use: None Exam - Constitutional Vitals: Period Temp Pulse Resp BP Sys/Flores Pulse Ox Last 24 Hr 96.5 F-98.3 F 65-70 16-18 134-163/78-103 92-98 Exam: GENERAL: Patient is in no acute distress. NECK: Neck is supple. There is no JVD. No carotid bruits present. No thyroid masses. CVS: First and second heart sounds are normal. There is no S3 present. Regular rate and rhythm. RESPIRATORY: Lungs are clear to auscultation without any rales or rhonchi. ABDOMEN: Soft and non-tender. Bowel sounds are present. There is no hepatosplenomegaly. EXT: There is no palpable edema. Peripheral pulses are present. Skin: No rashes Central Nervous system: General: Alert, awake and Oriented x 3 Speech: Fluent Comprehension: Intact and normal Facial expressions: Normal Cranial Nerves: CN1/Olfactory: Normal CN II/ Optic: Normal, Visual Her unreliable CN III, and : ARNOL & EOMI CN V: Normal & intact CN VII: face is symmetric CNVIII: Normal CN XI/X/XI/XII: Intact and Normal Motor: Bulk and Tone is normal. Strength in the right 4/5 Strength in the left 4/5 Sensory: Grossly intact for all the modalities of PP, LT and temp sense Reflexes: 1+ and symmetrical Cerebellar function: Normal finger to nose and heel to macario testing. Gait: Walking with a walker Results - Labs CBC & BMP: 10/19/16 05:27 10/19/16 05:27 Assessment and Plan (1) Seizure disorder Status: Acute Assessment and plan: Continue Depakote at the same dose. Current Visit: Yes (2) Meningioma Status: Acute Assessment and plan: MRI brain without contrast Current Visit: Yes
[2016-10-19] MEDS: ENOXAPARIN 30 MG/0.3 ML SYRINGE SUBCUT SCH (20:18)
[2016-10-19] MEDS: cefTRIAXone 1,000 MG in SODIUM CHLORIDE 0.9% 100 ML IV SCH ×2 (20:23→20:50)
[2016-10-20] MEDS: ALBUTEROL/IPRATROPIUM 3 ML NEB RESP TX PRN ×2 (02:22→07:46)
[2016-10-20] MEDS: CALCIUM ACETATE 667 MG CAPSULE PO SCH ×3 (10:11→18:27)
[2016-10-20] MEDS: DIVALPROEX ER 500 MG TABLET PO SCH ×2 (10:12→20:56)
[2016-10-20] MEDS: PANTOPRAZOLE 40 MG TABLET PO SCH (10:12)
[2016-10-20] MEDS: GABAPENTIN 100 MG CAPSULE PO SCH (10:12)
[2016-10-20] MEDS: AZITHROMYCIN 250 MG TABLET PO SCH (10:12)
[2016-10-20] MEDS: amLODIPine 5 MG TABLET PO SCH (10:12)
[2016-10-20] MEDS: CARVEDILOL 12.5 MG TABLET PO SCH ×2 (10:12→20:56)
--- NOTE | 2016-10-20 12:22 | Nephrology Progress Note ---
Nephrology - PN: Subj Interval history: Patient seen on hemodialysis, she is tolerating this well we'll continue her treatment unchanged. Exam (PN)-Nephrology - Vital Signs Vital signs: Period Temp Pulse Resp BP Sys/Flores Pulse Ox Last 24 Hr 97.9 F-99 F 67-74 18-22 144-189/67-92 91-100 - Lab 10/19/16 05:27 10/19/16 05:27 Most recent lab results ABG pH 7.374 (7.35-7.45) 10/16/16 17:10 ABG pCO2 40.4 MM HG (35-48) 10/16/16 17:10 ABG pO2 67.6 MM HG (80-95) L 10/16/16 17:10 ABG HCO3 23.0 MMOL/L (20-26) 10/16/16 17:10 ABG O2 Saturation 90.9 % (95-100) L 10/16/16 17:10 Calcium 7.6 MG/DL (8.5-10.1) L 10/19/16 05:27 Magnesium 2.8 MG/DL (1.8-2.4) H 10/18/16 05:32 Assessment and Plan (1) Hyperkalemia Status: Acute Assessment and plan: We'll follow-up the patient's potassium, her EKG did not show any peaked T waves , we will re-dose with Kayexalate as needed for potassium of greater than 6. Current Visit: Yes (2) Hematoma of left flank Status: Acute Current Visit: Yes (3) ESRD (end stage renal disease) Status: Acute Assessment and plan: We will plan on hemodialysis tomorrow, I spoke to the patient about her outpatient dialysis she wishes to dialyze him [facility] however this may prove difficult to get her in the [facility], if this cannot be arranged in a timely fashion we could dialyze her in [facility]. Current Visit: Yes (4) Fluid overload Status: Acute Assessment and plan: Patient is breathing okay presently with supplemental O2 Current Visit: Yes (5) HTN (hypertension) Status: Acute Assessment and plan: Continue present medications Current Visit: Yes (6) Meningioma Status: Acute Current Visit: Yes
--- NOTE | 2016-10-20 17:51 | Event Note ---
Patient gone for dialysis. She refused MRI as well. It would be difficult to measure the exact size of the meningioma without MRI.
[2016-10-20] MEDS: ACETAMINOPHEN 325 MG TABLET PO PRN (18:28)
[2016-10-20 20:40] LABS: Hematocrit 29.1 VOL% (35.7-47.0)
[2016-10-20 20:41] LABS: Hemoglobin 9.2 GM/DL (12.0-16.0)
[2016-10-20] MEDS: ENOXAPARIN 30 MG/0.3 ML SYRINGE SUBCUT SCH (20:56)
[2016-10-20] MEDS: cefTRIAXone 1,000 MG in SODIUM CHLORIDE 0.9% 100 ML IV SCH (20:57)
[2016-10-21] MEDS: ALBUTEROL/IPRATROPIUM 3 ML NEB RESP TX PRN (02:50)
[2016-10-21] MEDS: ACETAMINOPHEN 325 MG TABLET PO PRN (04:11)
[2016-10-21] MEDS: CALCIUM ACETATE 667 MG CAPSULE PO SCH ×2 (08:45→12:30)
[2016-10-21] MEDS: AZITHROMYCIN 250 MG TABLET PO SCH (08:45)
[2016-10-21] MEDS: DIVALPROEX ER 500 MG TABLET PO SCH (08:46)
[2016-10-21] MEDS: amLODIPine 5 MG TABLET PO SCH (08:46)
[2016-10-21] MEDS: GABAPENTIN 100 MG CAPSULE PO SCH (08:46)
[2016-10-21] MEDS: CARVEDILOL 12.5 MG TABLET PO SCH (08:46)
[2016-10-21] MEDS: PANTOPRAZOLE 40 MG TABLET PO SCH (08:46)
[2016-10-21 09:00] VITALS: BP 155/94
--- NOTE | 2016-10-21 10:31 | Discharge Summary ---
<Perla Sequeira - Last Filed: 10/21/16 10:26> Hospital Course - Hospital Course Hospital Course: Ms. Merlos was admitted on 10/16/16 with fluid overload due to skipping dialysis. She was in acute respirtory distress. She resumed regular dialysis usually done on MWF. She just recently relocated to [place] from [place] and was unable to get her dialysis set up prior to moving quickly. Dr. Shepard with nephrology was consulted for ESRD. CT head showed a meningioma. She did have hyperkalemia without peaked T waves. She underwent emergent dialysis and tolerated this well. She required 2 units of PRBC's for chronic anemia on dialysis. Dr. Agustin was consulted for meningioma . This is not knew for the patient. She denies any headaches, nausea or vomiting. Hx of seizures but none since May 2016. She has markedly improved since admission and has been set up for outpatient dialysis near her residence. She will be discharged home today on appropriate medications and follow up. - Time spent with patient Time with patient DS: Greater than 30 minutes (due to plan, doc and med rec.) Diagnosis - Discharge Diagnosis (1) Acute respiratory distress Status: Acute (2) CAP (community acquired pneumonia) Status: Acute (3) ESRD (end stage renal disease) Status: Acute (4) Fluid overload Status: Acute (5) HTN (hypertension) Status: Acute (6) Hyperkalemia Status: Acute (7) Meningioma Status: Acute Specialty Discharge - Follow Up or Referrals Follow up with: Eric Agustin MD [Physician] - 11/03/16 9:00 am Discharge Plan - Discharge Data Disposition: Disch To Home/Self Care - Discharge Medications New Epoetin Lionel [Epogen] 10,000 unit IV WITH DIALYSIS PRN #0 vial PRN Reason: Dialysis Acetaminophen Tab [Tylenol Tab] 650 mg PO Q4H PRN #0 tablet PRN Reason: Fever, Headache, Mild Pain Levofloxacin Tab [Levaquin Tab] 500 mg PO DAILY #7 tablet Continue Acetaminophen Tab [Tylenol Tab] 650 mg PO Q4H PRN PRN Reason: Pain Carvedilol 12.5 mg PO BID Amlodipine Besylate 5 mg PO DAILY Calcium Acetate [Phoslo] 667 - 1,334 mg PO WITH SNACKS Calcium Acetate [Phoslo] 2,001 mg PO TID W/MEALS Omeprazole 20 mg PO DAILY Divalproex ER [Depakote ER] 500 mg PO BID Gabapentin Cap/Tab [Neurontin Cap/Tab] 100 mg PO DAILY - Follow Up or Referral Follow Up: Eric Agustin MD [Physician] - 11/03/16 9:00 am - Forms/Instructions Instructions: Hyperkalemia (DC) Exam - Constitutional Vitals: Period Temp Pulse Resp BP Sys/Flores Pulse Ox Last 24 Hr 98.2 F-98.7 F 68-76 18-20 131-180/72-94 94-98 Discharge Results Procedures and tests throughout hospitalization: Pending Orders 10/16/16 20:34 Urine Culture Routine 10/16/16 21:12 Sputum Culture and Gram Stain Routine 10/16/16 21:49 Blood Culture Routine Labs on day of discharge: Labs from last 24 hours 10/20/16 10/19/16 20:33 Unknown Hgb 9.2 L D Hct 29.1 L Blood Type B POSITIVE Antibody Screen Negative Crossmatch See Detail Preliminary micro results at discharge 10/16/16 21:49 Blood Culture - Preliminary Blood No growth at 3 days 10/16/16 21:49 Blood Culture - Preliminary Blood No growth at 3 days DS: Provider Date of admission: 10/16/16 18:39 Primary care physician: . No PCP Attending physician on admission: Radha Lino MD Consults: 10/16/16 20:34 Consult to Physician [CONS] Routine Comment: DIAYLSIS PT Consulting Provider: Reed Shepard Consult to Specialist Group: Nephrology When should Consulting Provider be notified: Shantell Date Notified: 10/18/16 Time Notified: 12:28 Consult Notification Comment: aware 10/16/16 20:41 Consult to Pharmacy [CONS] Routine Reason for Pharmacy Consult: Adjust Meds Renal Funct 10/16/16 21:18 Consult to Physician [CONS] Routine Comment: history of meningioma Consulting Provider: Eric Agustin Consult to Specialist Group: Neurology When should Consulting Provider be notified: In am Person Notified: prosper Date Notified: 10/18/16 Time Notified: 14:29 Consult Notification Comment: 10/16/16 21:19 Consult to Physical Therapy [CONS] Routine Reason for Physical Therapy: Evaluate and Treat 01/29/17 10:06 Consult to Case Mgmt/Social Srvs [CONS] Routine Reason for Case Mgmt/Social Srvs: Dialysis Consult Comment: New to [place] from [place], wants to go to [place] dialysis clinic Discharging clinician: Perla Sequeira NP Expected date of discharge: 10/21/16 <Radha Lino - Last Filed: 10/21/16 10:48> Hospital Course - Hospital Course Hospital Course: Neurology recommended an MRI but patient refused. We will have her follow with them in clinic. - Time spent with patient Time with patient DS: Greater than 30 minutes Diagnosis - Discharge Diagnosis (1) Fluid overload Status: Acute (2) Acute respiratory distress Status: Acute (3) CAP (community acquired pneumonia) Status: Acute (4) ESRD (end stage renal disease) Status: Acute (5) HTN (hypertension) Status: Acute (6) CVA (cerebral vascular accident) Status: Acute (7) Meningioma Status: Acute (8) Hyperkalemia Status: Acute Discharge Plan - Discharge Data Condition at Discharge: Stable Discharge Diet: heart healthy Activity: resume usual activities as tolerated - Forms/Instructions Additional Discharge Instructions: Follow with PCP in 1week, continue outpatient dialysis as scheduled. Follow Neurology as scheduled Exam - Constitutional General appearance: no acute distress, morbidly obese - Head Head exam: Present: normal inspection - Respiratory Respiratory exam: Present: clear to auscultation bilaterally - Cardiovascular Cardiovascular exam: Present: regular rate and rhythm - GI/Abdominal GI/Abdominal exam: Present: normal bowel sounds - Extremities Exam Extremities exam: Present: normal inspection
== END 2016-10-21 13:15 | disposition home or self-care (01) | DRG 640 ==
LOC: N.ED 15:58 → N.EDINP 18:39 → N.5E 19:29
PROVIDERS: ADMIT Internal Medicine; ATTEND Internal Medicine

== ENCOUNTER 2017-04-11 17:22 | Inpatient (IN) ==
--- NOTE | 2017-04-11 17:53 | Emergency Department Note ---
Arrival - Arrival Chief Complaint: Seizure Stated Complaint: Seizure ED Nursing Triage Note: Patient to ER 12 via EMS with complaint of seizure activity. Seizure activity occurred 2 1/2 hours prior to arrival. Witnessed by behavioral herapist. EMS states that patient got dizzy and slumped to the floor. Patient was awake and alert upon EMS arrival. Dialysis patient. Patient dializes on M, W, and F. Mode of Arrival: Stretcher Limitations: No Limitations Source: Patient Time Seen by Provider: 04/11/17 17:48 - History of Present Illness HPI Narrative: This 61-year-old black female alleging recent move to this area from [place] and a dialysis patient dialyzing Tuesday, Tuesday, and Tuesday, presents with a witnessed generalized seizure without tongue biting or incontinence. The patient has a history of what she describes as a benign brain tumor and has been treated for seizures for several years. The patient, although relatively oriented to time, cannot remember basics of her medication, physician visits, or anything of detail concerning her illness. In this regard, the patient has been visiting physicians in the ER here for over a year and has not recently moved from [place]. She does state that she has been having seizures on average up 2 a week but from what can be gleaned from her, she is not that compliant with her medications. She was supposed to dialyze today but failed to do so because of the seizure. Currently she does not complain of headache, slurred speech, visual changes, or focal deficits. As stated she is not confused but has very significant memory problems, a fact the patient admits is worse than usual. Currently she is in no acute medical distress. In follow-up, her states that for the last 3 weeks she has been totally confused but has been taking her medicine and does corroborate her history of 2 seizures a week on average and likewise states her brain tumor is benign. Because of these recent changes in her situation, the family taken her to [facility] in [place] last night where they had wanted to admit her but they had no beds available. Rather than wait for [facility] to try to place her, the family left and returned here. Onset (ago): hour(s) (Patient presents 3 hours post seizure) Date of Last Menstrual Period: Hyst Allergies/Adverse Reactions: Allergies Allergy/AdvReac Type Severity Reaction Status Date / Time Sulfa (Sulfonamide Allergy Unknown/Unable Verified 01/26/17 15:12 Antibiotics) to obtain allopurinol AdvReac Unknown/Unable Verified 10/23/16 02:36 to obtain naproxen AdvReac Unknown/Unable Verified 10/23/16 02:36 to obtain Home Medications: Home Medications Medication Instructions Recorded Confirmed Type Calcium Acetate [Phoslo] 2,001 mg PO TID W/MEALS 10/16/16 04/11/17 History Carvedilol 12.5 mg PO BID 10/16/16 04/11/17 History Divalproex ER [Depakote ER] 500 mg PO BID 10/16/16 04/11/17 History Acetaminophen Tab [Tylenol Tab] 650 mg PO Q4H PRN #0 tablet 10/21/16 04/11/17 Rx HYDROcodone/ACETAMIN 5-325 [[place] 1 tablet PO BID PRN 04/11/17 04/11/17 History 5-325] Review of System - Review of System 12 point system: reviewed and no additional remarkable complaints except as stated - Review of System Constitutional: Present: as per HPI Neurological: Present: as per HPI Hematological/Lymphatic: Present: as per HPI Medical,Surgical,& Family Hx - Medical History Cardio: History of: Hypertension Neurology: History of: Cerebrovascular Accident, Seizures Renal: History of: Dialysis (Tuesday, , Saturdays), Renal Failure Musculoskeletal: History of: Back/Neck Problems - Surgical History Neurologic Surgeries: Comment Only: Neurologic Surgery (pt currently has a brain tumor) Abdominal Surgeries: Surgical HX of: Cholecystectomy - Family History Family History: Reports;: Family Hypertension - Social History Smoking Status: Former smoker Exam Physical Examination: GENERAL: Well developed, well nourished elderly black female in no acute distress. HEENT: Normocephalic. No trauma. Moist mucous membranes. EOMI. PERRLA. ENT NML NECK: Supple. No adenopathy. CARDIAC: Regular. No murmurs. Heart rate 90 CHEST: Clear to auscultation. No respiratory distress. O2 sat 93% ABDOMEN: Soft. Nontender. Active bowel sounds. EXTREMITIES: No trauma. Normal ROM. No pedal edema. Right upper extremity fistula with good thrill SKIN: No diaphoresis. No rash. NEURO: Alert. Oriented to person and place but relatively to time. Motor, sensory, vibratory intact. No focal deficits. Vital Signs: Vital Signs Temperature 97.4 F L 04/11/17 17:30 Pulse Rate 65 04/11/17 19:00 Respiratory Rate 15 04/11/17 19:00 Blood Pressure 155/125 04/11/17 19:00 O2 Sat by Pulse Oximetry 97 04/11/17 19:00 Course Course Narrative: Dual lumen external jugular line placed left external jugular without difficulty - Reevaluation(s) Reevaluation #1: Advised family of the need for hospitalization and further organized medications and stabilize her neurologic situation. - Consultations Consultation #1: Awaiting response from Dr. Agustin Consultation #2: Discussed with hospitalist service who will admit the patient for further evaluation and treatment after Dr. Boss finally responded. He will follow in a consultative basis with the hospitalist service. Results - Labs CBC & BMP: 04/11/17 18:01 04/11/17 18:01 Labs: I have reviewed the laboratory noted the anemia as well as the expected changes in renal function. - Impressions EKG: Sinus rhythm at 65 with normal SC interval and incomplete right bundle branch block. Left atrial enlargement noted with diffuse nonspecific ST changes but no acute injury pattern. - Diagnostic Findings Procedure: CT: image reviewed by me, report reviewed by me (Head: 22 mm calcified mass left anterior cranial fossa with associated vasogenic edema unchanged on interval study as well as moderate bilateral carotid artery atherosclerosis but no acute changes.) Disposition Clinical Impression: Meningioma with vasogenic edema, Altered mental status, Dialysis dependent renal failure Case discussed with: patient's family Disposition: Still a Patient Condition: Guarded Time of Disposition: 20:18
[2017-04-11 18:13] LABS: Basophils % 0.5 % (0.0-0.8); Eosinophils # 0.1 10*3/uL (0.0-0.87); Eosinophils % 2.9 % (0.00-10.9); Hematocrit 28.8 VOL% (35.7-47.0); Hemoglobin 9.4 GM/DL (12.0-16.0); Immature Granulocytes % 0.2 %; Immature Granulocytes Absolute 0.01 #; Lymphocytes # 0.9 10*3/uL (1.4-4.0); Lymphocytes % 21.5 % (21.3-54.2); Mean Corpuscular HGB Conc 32.6 GM/DL (32-36); Mean Corpuscular Hemoglobin 33 PG (27-34); Mean Corpuscular Volume 99.7 FL (87-102); Mean Platelet Volume 12.5 FL (9.6-12.0); Monocytes # 0.6 10*3/uL (0.11-0.8); Monocytes % 14.5 % (1.7-12.7); Neutrophils # 2.5 10*3/uL (1.4-7.4); Neutrophils % 60.4 % (38.7-73.9); Red Blood Count 2.89 MC/CUMM (3.8-5.5); Red Cell Distribution Width 14.6 % (9.3-17.3); White Blood Count 4.1 T/CUMM (4-12)
[2017-04-11 18:14] LABS: Platelet Count 85 T/CUMM (130-400)
[2017-04-11] MEDS ORDERED: levETIRAcetam 500 MG/5 ML VIAL IV ONE (18:31)
--- NOTE | 2017-04-11 18:32 | EKG Report ---
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
[2017-04-11 18:45] LABS: Alanine Aminotransferase 13 U/L (13-56); Albumin 3.6 G/DL (3.4-5.0); Alkaline Phosphatase 58 U/L (45-117); Aspartate Amino Transferase 20 U/L (0-37); Blood Urea Nitrogen 117 MG/DL (7-18); Calcium 7.4 MG/DL (8.5-10.1); Glucose 88 MG/DL (74-106); Potassium 5.2 MMOL/L (3.5-5.1); Sodium 136 MMOL/L (136-145); Total Protein 7.1 G/DL (6.4-8.3); Troponin I Only 0.044 NG/ML (0.00-0.045)
--- NOTE | 2017-04-11 19:05 | CT Report ---
History: Seizure Date: 04/11/2017 Study: CT head without contrast Comparison exam: January 26, [address] sections were obtained through the head without IV contrast. This CT exam was performed using one or more the following dose reduction techniques: Automated exposure control, adjustment of the MA and/or KV according to patient size, or use of iterative reconstruction technique. The ventricles are midline in position without evidence of hydrocephalus. There is a partially calcified mass in the anterior aspect of the left middle cranial fossa at 22 mm diameter, likely a partially calcified meningioma, as noted on the previous study. There is some underlying vasogenic edema in the adjacent left temporal lobe and posterior inferior aspect of the left frontal lobe without change. There is no new mass. There is no parenchymal hemorrhage. There is no gross CT evidence of acute cortical stroke. There is moderate distal carotid artery calcification bilaterally. There is no extra-axial hematoma. There is mild cerebral atrophy. Impression: Partially calcified 22 mm mass in the anterior aspect of the middle cranial fossa on the left, extending up to the level of the posterior margin of the left anterior cranial fossa. This may represent a partially calcified meningioma as discussed previously. There is some vasogenic edema in the adjacent left temporal and posterior left frontal lobes as before. Overall no significant interval change from the previous exam PROCEDURE INTERPRETED AT [facility] DEPARTMENT OF RADIOLOGY Final Report Signed by: Dr. Ivanna Tran
[2017-04-11 20:24] LABS: Platelet Estimate Decreased
[2017-04-11 20:25] LABS: Burr Cells Few; Poikilocytosis 1+; Tear Drop Cells Few
--- NOTE | 2017-04-11 20:32 | XRay Report ---
History: Shortness of breath Date: 04/11/2017 Study: Chest x-ray AP portable Comparison exam: January 26, 2017 There is cardiomegaly. The pulmonary vasculature is slightly prominent. The mediastinal contour is unchanged. There is some suspected minimal hazy edema in the lower lungs. There is no gross pleural effusion. Osseous structures are similar. Impression: Cardiomegaly and evidence of CHF with some mild bibasilar pulmonary edema PROCEDURE INTERPRETED AT [facility] DEPARTMENT OF RADIOLOGY Final Report Signed by: Dr. Ivanna Tran
--- NOTE | 2017-04-11 20:56 | Hospitalist History & Physical ---
History of Present Illness Chief complaint: Seizure activity History of present illness: Ms. Villalobos is a 61 year old female who is a difficult historian. and child are present and are able to give some history although confusing at times. states that patient was diagnosed with a brain tumor in 2012. Patient has a history of a meningioma. Patient started having seizures last year. She was placed on depakote. For the past month, states that patient has been having up to 2 seizures a week. Seizures are described as eyes going to the back of her head and generalized shaking. Activity would last up to 5 minutes. There have been no tongue/oral trauma or bowel or bladder dysfunction. Patient would wake up confused. Patient's neurologist is at [facility]. They don't recall his name. Patient states that his last name starts with a "L". states that they were there yesterday but left after waiting so long and after being told there were no beds. Patient's states that patient has been taking her VPA on a regular basis. Patient has ESRD and undergoes HD on [facility]. She missed HD today. Patient notes some SOB, sharp CP, and abdominal pain. She denies any n/v/constipation/ diarrhea. While in the ER, patient was given keppra. Home Medications Medication Instructions Recorded Confirmed Type Calcium Acetate [Phoslo] 2,001 mg PO TID W/MEALS 10/16/16 04/11/17 History Carvedilol 12.5 mg PO BID 10/16/16 04/11/17 History Divalproex ER [Depakote ER] 500 mg PO BID 10/16/16 04/11/17 History Acetaminophen Tab [Tylenol Tab] 650 mg PO Q4H PRN #0 tablet 10/21/16 04/11/17 Rx HYDROcodone/ACETAMIN 5-325 [Jayess 1 tablet PO BID PRN 04/11/17 04/11/17 History 5-325] Allergies Allergy/AdvReac Type Severity Reaction Status Date / Time Sulfa (Sulfonamide Allergy Unknown/Unable Verified 01/26/17 15:12 Antibiotics) to obtain allopurinol AdvReac Unknown/Unable Verified 10/23/16 02:36 to obtain naproxen AdvReac Unknown/Unable Verified 10/23/16 02:36 to obtain Medical,Surgical,& Family Hx - Medical History Cardio: History of: Hypertension Neurology: History of: Cerebrovascular Accident, Seizures, Neurological Problems (meningioma, subdural hematoma) Renal: History of: Dialysis (Tuesday, , Saturdays), Renal Failure Musculoskeletal: History of: Back/Neck Problems - Surgical History Cardiac Surgeries: Sugical HX of: Vascular Access Devices (AV fistula) Neurologic Surgeries: Comment Only: Neurologic Surgery (pt currently has a brain tumor) Abdominal Surgeries: Surgical HX of: Cholecystectomy - Family History Family History: Reports;: Family Hypertension - Social History Smoking Status: Former smoker (unable to quantify number of cigareets and duration; states patient quit in 1995, patient states 2012) Frequency of Alcohol Use: None Type of Drug Use: None - Constitutional Constitutional: Present: as per HPI - Cardiovascular Cardiovascular: Present: as per HPI - Respiratory Respiratory: Present: as per HPI, cough (non productive cough for one week) - Gastrointestinal Gastrointestinal: Present: as per HPI - Musculoskeletal Musculoskeletal: Present: back pain (chronic low back pain) - Neurological Neurological: Present: as per HPI Exam - Constitutional Vitals: Period Temp Pulse Resp BP Sys/Flores Pulse Ox Last 24 Hr 97.4 F-97.4 F 65-82 15-18 155-221/111-125 95-97 General appearance: no acute distress - Head Head exam: Present: normocephalic - Eye Eye exam: Present: EOMI. Absent: scleral icterus Pupils: Present: ARNOL - ENT ENT exam: Present: normal exam - Neck Neck exam: Present: normal inspection - Respiratory Respiratory exam: Present: clear to auscultation bilaterally. Absent: rales, rhonchi, wheezes - Cardiovascular Cardiovascular exam: Absent: diastolic murmur, rubs, systolic murmur - GI/Abdominal GI/Abdominal exam: Present: normal bowel sounds, soft. Absent: distended, mass , tenderness - Extremities Exam Extremities exam: Present: edema (trace), other (no asterixis; RUE fistula with palpable thrill and audible bruit) - Psychiatric Psychiatric exam: Present: anxious (impaired thought process and content although oriented x3) - Skin Skin exam: Present: normal color Results - Labs CBC & BMP: 04/11/17 18:01 04/11/17 18:01 - Impressions Head CT:Partially calcified 22 mm mass in the anterior aspect of the middle cranial fossa on the left, extending up to the level of the posterior margin of the left anterior cranial fossa. This may represent a partially calcified meningioma as discussed previously. There is some vasogenic edema in the adjacent left temporal and posterior left frontal lobes as before. Overall no significant interval change from the previous exam Cxray: cardiomegaly, mild pulmonary venous congestion EKG: NSR, incomplete RBBB, old anterior infarct Assessment: 1. Seizure activity, suspect non compliance. She is on depakote and level is 35 2. h/o seizure disorder 3. h/o meningioma with vasogenic edema 4. Accelerated HTN 5. h/o ESRD on HD 6. SOB 7. Acute CP 8. Confusion, could be 2nd to hyperammonemia from use with VPA; check NH3 level 9. Thrombocytopenia, could be 2nd to VPA; monitor 10. Anemia 11. Cormorbid conditions: HTN, ESRD Plan: admit to telemetry; serial TNIs; duonebs; continue keppra (renally dosed); consult neurology and nephrology; control blood pressure; add decadron given vasogenic edema; monitor HCT; basc anemia work up; DVT and GI prophalaxis The plan of care may be modified as more information becomes available.
[2017-04-11] MEDS ORDERED: DEXAMETHASONE INJ 10 MG in SODIUM CHLORIDE 0.9% 50 ML IV ONE (21:19)
[2017-04-11] MEDS ORDERED: DEXAMETHASONE 4 MG/1 ML VIAL IV ONE (22:30)
[2017-04-11] MEDS ORDERED: ALPRAZolam 0.25 MG TABLET PO ONE (23:15)
[2017-04-11] MEDS ORDERED: oxyCODONE IR 5 MG TABLET PO PRN (23:15)
[2017-04-11] MEDS: hydrALAZINE 20 MG/1 ML VIAL IV SCH (23:25)
[2017-04-12] MEDS: hydrALAZINE 20 MG/1 ML VIAL IV SCH ×6 (02:15→21:53)
[2017-04-12 05:23] LABS: Hematocrit 27.5 VOL% (35.7-47.0); Mean Corpuscular HGB Conc 32.7 GM/DL (32-36); Mean Corpuscular Hemoglobin 33 PG (27-34); Mean Corpuscular Volume 99.6 FL (87-102); Red Blood Count 2.76 MC/CUMM (3.8-5.5); Red Cell Distribution Width 14.7 % (9.3-17.3); White Blood Count 4.3 T/CUMM (4-12)
[2017-04-12 05:24] LABS: Basophils % 0.5 % (0.0-0.8); Eosinophils % 0.5 % (0.00-10.9); Immature Granulocytes % 0.5 %; Immature Granulocytes Absolute 0.02 #; Lymphocytes # 0.6 10*3/uL (1.4-4.0); Lymphocytes % 14.7 % (21.3-54.2); Mean Platelet Volume 11.3 FL (9.6-12.0); Monocytes # 0.2 10*3/uL (0.11-0.8); Monocytes % 4.7 % (1.7-12.7); Neutrophils # 3.4 10*3/uL (1.4-7.4); Neutrophils % 79.1 % (38.7-73.9); Platelet Count 80 T/CUMM (130-400)
[2017-04-12 05:52] LABS: Band Neutrophils 1 % (0-10); Hypochromasia 1+; Lymphocytes 13 % (20-55); Segmented Neutrophils 85 % (50-85); Total Cells Counted 100
[2017-04-12 05:53] LABS: Macrocytosis Slight; Platelet Estimate Decreased
[2017-04-12 06:13] LABS: Basophils % 0.3 % (0.0-0.8); Eosinophils % 0.3 % (0.00-10.9); Hematocrit 27.5 VOL% (35.7-47.0); Hemoglobin 8.9 GM/DL (12.0-16.0); Immature Granulocytes % 0.3 %; Immature Granulocytes Absolute 0.01 #; Lymphocytes # 0.5 10*3/uL (1.4-4.0); Lymphocytes % 13.8 % (21.3-54.2); Mean Corpuscular HGB Conc 32.4 GM/DL (32-36); Mean Corpuscular Hemoglobin 32 PG (27-34); Mean Corpuscular Volume 99.6 FL (87-102); Mean Platelet Volume 11.6 FL (9.6-12.0); Monocytes # 0.2 10*3/uL (0.11-0.8); Monocytes % 4.1 % (1.7-12.7); Neutrophils % 81.2 % (38.7-73.9); Platelet Count 80 T/CUMM (130-400); Red Blood Count 2.76 MC/CUMM (3.8-5.5); Red Cell Distribution Width 14.7 % (9.3-17.3); White Blood Count 3.7 T/CUMM (4-12)
[2017-04-12 06:42] LABS: Hypochromasia Slight; Lymphocytes 12 % (20-55); Microcytosis Slight; Platelet Estimate Decreased; Segmented Neutrophils 86 % (50-85); Target Cells Slight; Total Cells Counted 100
[2017-04-12 06:48] LABS: Albumin 3.3 G/DL (3.4-5.0); Bilirubin,Total 0.4 MG/DL (0.2-1.0); Calcium 6.9 MG/DL (8.5-10.1); Ferritin 1264.1 ng/ml (8-252); Potassium 5.9 MMOL/L (3.5-5.1); Total Protein 6.5 G/DL (6.4-8.3)
[2017-04-12] MEDS ORDERED: LORazepam 2 MG/1 ML VIAL IV ONE (08:02)
[2017-04-12] MEDS ORDERED: ACETAMINOPHEN 325 MG TABLET PO PRN (08:06)
[2017-04-12] MEDS: PANTOPRAZOLE 40 MG TABLET PO SCH (10:39)
[2017-04-12] MEDS: amLODIPine 5 MG TABLET PO SCH (10:39)
[2017-04-12] MEDS: CARVEDILOL 12.5 MG TABLET PO SCH ×2 (10:39→21:53)
[2017-04-12] MEDS: DIVALPROEX ER 500 MG TABLET PO SCH ×2 (10:39→21:53)
[2017-04-12] MEDS: CALCIUM ACETATE 667 MG CAPSULE PO SCH ×2 (11:32→16:13)
--- NOTE | 2017-04-12 14:56 | Hospitalist Progress Note ---
Assessment and Plan (1) End stage renal disease on dialysis Status: Acute Current Visit: Yes (2) Seizure disorder Status: Acute Assessment and plan: Continue Dilantin. Neurology consult. Patient received Keppra in the ER. Current Visit: Yes (3) Breakthrough seizure Status: Acute Current Visit: Yes (4) Subtherapeutic serum dilantin level Status: Acute Current Visit: Yes (5) Panic anxiety syndrome Status: Acute Current Visit: Yes Hospitalist: Subjective Interval history: Patient seen and examined. No acute events overnight. Case discussed with nursing staff. Labs reviewed. Patient was admitted for recurrent seizures. She has a history of seizure disorder and is on medication. Her medication level was low. This morning she had a bit of a panic attack. She was treated with Ativan and it improved. Exam - Constitutional Vitals: Period Temp Pulse Resp BP Sys/Flores Pulse Ox Last 24 Hr 97.4 F-98.6 F 63-82 15-20 125-221/76-125 91-100 Exam: Constitutional System: No resting comfortably after Ativan administration distress. No tremulousness. Head: Normocephalic, atraumatic. Ears, Nose and Throat System: No pain or tenderness. No epistaxis or discharge Eyes System: Pupils equal, round, and reactive. Extraocular muscles intact. Neck: Supple, without adenopathy, No jugular venous distention. No thyromegaly, neck mass, or prior surgery apparent. Respiratory System: Chest clear to auscultation. Cardiovascular System: Heart with regular rate and rhythm. No murmur. GI System: Abdomen soft, nontender. Normo active bowel sounds present. Musculoskeletal System: limbs with no pedal edema. Full distal pulses. Neurological System: No discernable sensory deficit. Results - Labs CBC & BMP: 04/12/17 04:39 04/12/17 04:39 Lab Results: I have reviewed the past 24 hour labs
--- NOTE | 2017-04-12 15:21 | Nephrology Consult Note ---
History of Present Illness Chief complaint: ESRD History of present illness: Ms. Villalobos is a 61 year old female with end-stage renal disease who is supposed to dialyze on a Tuesday basis in [facility]. The patient's last dialysis was about 5 days ago when she only dialyzed for about an hour, her treatment prior to that was about 5 days prior as well and only for about an hour. Patient was admitted yesterday after having a seizure witnessed by her apparently. The history is taken from the chart and medical personnel and a little from the patient although her history is of questionable reliability. Patient initially proved to [facility] for evaluation and treatment of her seizure but they did not have any beds available and she subsequently was admitted here. The patient has a history of a brain tumor and on CT scan that shows a 22 mm calcified mass. The patient's creatinine levels around 19 her urea nitrogen levels around 115. ROS: Head -positive headaches ENT -positive sore throat Lymphatics -positive lymphadenopathy Hematology - denies bleeding problems Heart -positive chest pain Lungs -positive shortness of breath Abdomen -positive abdominal pain Musculoskeletal -positive arthritis Skin - denies rash Neurology - denies stroke General - denies fever PE: General: in no acute distress Eyes: Pupils are round and reactive, conjunctivae are clear ENT: Nose is clear, O/P is benign Neck: Supple, no thyromegaly Lymphatics: No cervical, supraclavicular or axillary adenopathy Heart: Regular rate and rhythm, no edema Lungs: Clear to auscultation anteriorly, chest expansion symmetric Abdomen: Soft, normoactive bowel sounds, no hepatomegaly Musculoskeletal: No joint erythema or effusions or joint asymmetry Skin: Normal turgor, normal hydration, no rash Neuro/Psych: Alert and cooperative with poor insight Home Medications Medication Instructions Recorded Confirmed Type Calcium Acetate [Phoslo] 2,001 mg PO TID W/MEALS 10/16/16 04/11/17 History Carvedilol 12.5 mg PO BID 10/16/16 04/11/17 History Divalproex ER [Depakote ER] 500 mg PO BID 10/16/16 04/11/17 History Acetaminophen Tab [Tylenol Tab] 650 mg PO Q4H PRN #0 tablet 10/21/16 04/11/17 Rx HYDROcodone/ACETAMIN 5-325 [[place] 1 tablet PO BID PRN 07/24/17 07/24/17 History 5-325] Omeprazole 20 mg PO DAILY 04/12/17 04/12/17 History amLODIPine [Norvasc] 5 mg PO DAILY 04/12/17 04/12/17 History Allergies Allergy/AdvReac Type Severity Reaction Status Date / Time Sulfa (Sulfonamide Allergy Unknown/Unable Verified 01/26/17 15:12 Antibiotics) to obtain allopurinol AdvReac Unknown/Unable Verified 10/23/16 02:36 to obtain naproxen AdvReac Unknown/Unable Verified 10/23/16 02:36 to obtain Medical,Surgical,& Family Hx - Medical History Cardio: History of: Hypertension Neurology: History of: Cerebrovascular Accident, Seizures, Neurological Problems (meningioma, subdural hematoma) Renal: History of: Dialysis (Tuesday, , Saturdays), Renal Failure Musculoskeletal: History of: Back/Neck Problems - Surgical History Cardiac Surgeries: Sugical HX of: Vascular Access Devices (AV fistula) Neurologic Surgeries: Comment Only: Neurologic Surgery (pt currently has a brain tumor) Abdominal Surgeries: Surgical HX of: Cholecystectomy - Family History Family History: Reports;: Family Hypertension - Social History Smoking Status: Former smoker (unable to quantify number of cigareets and duration; states patient quit in 1995, patient states 2012) Frequency of Alcohol Use: None Type of Drug Use: None Exam - Vital Signs Vital signs: Period Temp Pulse Resp BP Sys/Flores Pulse Ox Last 24 Hr 97.4 F-98.6 F 63-82 15-20 125-221/76-125 91-100 Results - Labs CBC & BMP: 04/12/17 04:39 04/12/17 04:39 Assessment and Plan (1) Breakthrough seizure Status: Acute Assessment and plan: Management per the primary service and neurology, patient's valproic acid level was noted to be subtherapeutic Current Visit: Yes (2) End stage renal disease on dialysis Status: Acute Assessment and plan: Patient is noncompliant with her dialysis, will plan on hemodialysis tomorrow Current Visit: Yes (3) CVA (cerebral vascular accident) Status: Acute Assessment and plan: Patient has a remote history of a cerebrovascular accident, she is somewhat confused presently talking about her leaving her. Current Visit: No (4) HTN (hypertension) Status: Acute Assessment and plan: This is controlled Current Visit: No (5) Hyperkalemia Status: Acute Assessment and plan: This should correct with dialysis tomorrow. It should be okay without any Kayexalate at this time. Current Visit: No (6) Anemia Status: Acute Assessment and plan: We will continue EPO on hemodialysis Current Visit: Yes (7) Secondary hyperparathyroidism Status: Acute Assessment and plan: We will continue PhosLo with meals Current Visit: Yes
[2017-04-12] MEDS ORDERED: EPOETIN ALFA 10,000 UNIT/1 ML VIAL IV PRN (15:25)
--- NOTE | 2017-04-12 15:32 | Neurology Consult Note ---
History of Present Illness History of present illness: Patient is a poor historian. History basically obtained from the chart. Ms. Villalobos is a 61 year old right-handed -[place] lady with past medical history significant for meningioma diagnosed in 2012 followed by started to have seizures last year. She was placed on depakote. For the past month, family reported that patient has been having up to 2 seizures a week. Seizures are described as eyes going to the back of her head and generalized shaking. Activity would last up to 5 minutes. There have been no tongue biting/ oral trauma or bowel or bladder dysfunction reported. Patient would wake up confused though. Patient sees a neurologist in [place]. Patient's states that patient has been taking her VPA on a regular basis. Patient has ESRD and undergoes HD on MWF but is very noncompliant. Patient notes some SOB, sharp CP, and abdominal pain. She denies any n/v/constipation/diarrhea. While in the ER Keppra was added. CT scan of the brain revealed meningioma with vasogenic edema. I do not know that she has seen neurosurgery in the past or not. Home Medications Medication Instructions Recorded Confirmed Type Calcium Acetate [Phoslo] 2,001 mg PO TID W/MEALS 10/16/16 04/11/17 History Carvedilol 12.5 mg PO BID 10/16/16 04/11/17 History Divalproex ER [Depakote ER] 500 mg PO BID 10/16/16 04/11/17 History Acetaminophen Tab [Tylenol Tab] 650 mg PO Q4H PRN #0 tablet 10/21/16 04/11/17 Rx HYDROcodone/ACETAMIN 5-325 [[place] 1 tablet PO BID PRN 04/11/17 04/11/17 History 5-325] Omeprazole 20 mg PO DAILY 04/12/17 04/12/17 History amLODIPine [Norvasc] 5 mg PO DAILY 04/12/17 04/12/17 History Allergies Allergy/AdvReac Type Severity Reaction Status Date / Time Sulfa (Sulfonamide Allergy Unknown/Unable Verified 01/26/17 15:12 Antibiotics) to obtain allopurinol AdvReac Unknown/Unable Verified 10/23/16 02:36 to obtain naproxen AdvReac Unknown/Unable Verified 10/23/16 02:36 to obtain 12 point system: reviewed and no additional remarkable complaints except as stated Medical,Surgical,& Family Hx - Medical History Cardio: History of: Hypertension Neurology: History of: Cerebrovascular Accident, Seizures, Neurological Problems (meningioma, subdural hematoma) Renal: History of: Dialysis (Tuesday, , Saturdays), Renal Failure Musculoskeletal: History of: Back/Neck Problems - Surgical History Cardiac Surgeries: Sugical HX of: Vascular Access Devices (AV fistula) Neurologic Surgeries: Comment Only: Neurologic Surgery (pt currently has a brain tumor) Abdominal Surgeries: Surgical HX of: Cholecystectomy - Family History Family History: Reports;: Family Hypertension - Social History Smoking Status: Former smoker (unable to quantify number of cigareets and duration; states patient quit in 1995, patient states 2012) Frequency of Alcohol Use: None Type of Drug Use: None Exam - Constitutional Vitals: Period Temp Pulse Resp BP Sys/Flores Pulse Ox Last 24 Hr 97.4 F-98.6 F 63-82 15-20 125-221/76-125 91-100 Exam: GENERAL: Patient is in no acute distress. NECK: Neck is supple. There is no JVD. No carotid bruits present. No thyroid masses. CVS: First and second heart sounds are normal. There is no S3 present. Regular rate and rhythm. RESPIRATORY: Lungs are clear to auscultation without any rales or rhonchi. ABDOMEN: Soft and non-tender. Bowel sounds are present. There is no hepatosplenomegaly. EXT: There is no palpable edema. Peripheral pulses are present. Skin: No rashes Central Nervous system: General: Alert, awake but quite confused Speech: Fluent Comprehension: Fair Facial expressions: Normal Cranial Nerves: CN1/Olfactory: Normal CN II/ Optic: Normal, Visual Her unreliable CN III, and : ARNOL & EOMI CN V: Normal & intact CN VII: face is symmetric CNVIII: Normal CN XI/X/XI/XII: Intact and Normal Motor: Bulk and Tone is normal. Strength in the right 3-4/5 Strength in the left 4-5/5 Sensory: Grossly intact for all the modalities of PP, LT and temp sense Reflexes: 1+ and symmetrical Cerebellar function: Slow finger to nose and heel to macario testing. Toes: Equivocal Gait: Not tested Results - Labs CBC & BMP: 04/12/17 04:39 04/12/17 04:39 Assessment and Plan (1) Seizure disorder Status: Acute Assessment and plan: Continue Depakote at the same dose. Change Keppra to 500 p.o. twice daily EEG Current Visit: Yes (2) Meningioma Status: Acute Assessment and plan: Patient definitely need a neurosurgical evaluation Thank you for the consult Current Visit: No (3) End stage renal disease on dialysis Status: Acute Assessment and plan: Needs to be on dialysis on a regular basis. 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
[2017-04-12] MEDS: levETIRAcetam 500 MG TABLET PO SCH (21:53)
[2017-04-12] MEDS: ALPRAZolam 0.25 MG TABLET PO PRN (22:31)
[2017-04-13] MEDS: hydrALAZINE 20 MG/1 ML VIAL IV SCH ×5 (01:17→18:10)
[2017-04-13] MEDS: ALPRAZolam 0.25 MG TABLET PO PRN ×2 (07:11→11:32)
[2017-04-13] MEDS: DIVALPROEX ER 500 MG TABLET PO SCH ×2 (08:58→21:28)
[2017-04-13] MEDS: levETIRAcetam 500 MG TABLET PO SCH ×2 (08:58→21:28)
[2017-04-13] MEDS: CALCIUM ACETATE 667 MG CAPSULE PO SCH ×3 (08:58→17:35)
[2017-04-13] MEDS: CARVEDILOL 12.5 MG TABLET PO SCH ×2 (08:59→21:28)
[2017-04-13] MEDS: amLODIPine 5 MG TABLET PO SCH (08:59)
[2017-04-13] MEDS: PANTOPRAZOLE 40 MG TABLET PO SCH (08:59)
--- NOTE | 2017-04-13 12:43 | Nephrology Progress Note ---
Nephrology - PN: Subj Interval history: Pt. seen on HD, tolerating well, cont tx unchanged. Pt. asking about something for anxiety, states she likes the xanax A/P 1. Esrd - cont hd support 2. Sz do - management per neurology 3. Anxiety- could give a scheduled dose of xanax or perhaps a scheduled dose of Zoloft or other ssri. Exam (PN)-Nephrology - Vital Signs Vital signs: Period Temp Pulse Resp BP Sys/Flores Pulse Ox Last 24 Hr 97.5 F-98.0 F 69-74 18-22 113-141/47-82 92-97 - Lab 04/12/17 04:39 04/12/17 04:39 Most recent lab results Calcium 6.9 MG/DL (8.5-10.1) L 04/12/17 04:39 Assessment and Plan (1) Breakthrough seizure Status: Acute Assessment and plan: Management per the primary service and neurology, patient's valproic acid level was noted to be subtherapeutic Current Visit: Yes (2) End stage renal disease on dialysis Status: Acute Assessment and plan: Patient is noncompliant with her dialysis, will plan on hemodialysis tomorrow Current Visit: Yes (3) CVA (cerebral vascular accident) Status: Acute Assessment and plan: Patient has a remote history of a cerebrovascular accident, she is somewhat confused presently talking about her leaving her. Current Visit: No (4) HTN (hypertension) Status: Acute Assessment and plan: This is controlled Current Visit: No (5) Hyperkalemia Status: Acute Assessment and plan: This should correct with dialysis tomorrow. It should be okay without any Kayexalate at this time. Current Visit: No (6) Anemia Status: Acute Assessment and plan: We will continue EPO on hemodialysis Current Visit: Yes (7) Secondary hyperparathyroidism Status: Acute Assessment and plan: We will continue PhosLo with meals Current Visit: Yes
--- NOTE | 2017-04-13 15:46 | Neurology Progress Note ---
Neurology - PN : Subjective Interval history: Patient seems to be doing better. No more seizures reported. Mentally she is more alert and awake. Talking better. She has not been out of the bed. She is extremely weak. Exam (Progress Note) - Constitutional Vitals: Period Temp Pulse Resp BP Sys/Flores Pulse Ox Last 24 Hr 97.5 F-98.0 F 69-74 18-22 113-141/47-82 92-97 Exam: GENERAL: Patient is in no acute distress. NECK: Neck is supple. There is no JVD. No carotid bruits present. No thyroid masses. CVS: First and second heart sounds are normal. There is no S3 present. Regular rate and rhythm. RESPIRATORY: Lungs are clear to auscultation without any rales or rhonchi. ABDOMEN: Soft and non-tender. Bowel sounds are present. There is no hepatosplenomegaly. EXT: There is no palpable edema. Peripheral pulses are present. Skin: No rashes Central Nervous system: General: Alert, awake but quite confused Speech: Fluent Comprehension: Fair Facial expressions: Normal Cranial Nerves: CN1/Olfactory: Normal CN II/ Optic: Normal, Visual Her unreliable CN III, and : ARNOL & EOMI CN V: Normal & intact CN VII: face is symmetric CNVIII: Normal CN XI/X/XI/XII: Intact and Normal Motor: Bulk and Tone is normal. Strength in the right 3-4/5 Strength in the left 4-5/5 Sensory: Grossly intact for all the modalities of PP, LT and temp sense Reflexes: 1+ and symmetrical Cerebellar function: Slow finger to nose and heel to macario testing. Toes: Equivocal Gait: Not tested Results - Labs CBC & BMP: 04/12/17 04:39 04/12/17 04:39 Assessment and Plan (1) Seizure disorder Status: Acute Assessment and plan: Continue Depakote at the same dose. Continue Keppra to 500 p.o. twice daily Consult TMR Sign off please call as needed Follow-up in 4-6 weeks Current Visit: Yes (2) Meningioma Status: Acute Assessment and plan: Patient definitely need a neurosurgical evaluation Thank you for the consult Current Visit: No (3) End stage renal disease on dialysis Status: Acute Assessment and plan: Needs to be on dialysis on a regular basis. 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
--- NOTE | 2017-04-13 15:57 | Hospitalist Progress Note ---
Assessment and Plan (1) Meningioma Status: Acute Current Visit: No (2) End stage renal disease on dialysis Status: Acute Assessment and plan: Nephrology managing Current Visit: Yes (3) Seizure disorder Status: Acute Assessment and plan: Neurology assisting Current Visit: Yes (4) Subtherapeutic serum dilantin level Status: Acute Assessment and plan: Neurology assisting Current Visit: Yes Hospitalist: Subjective Interval history: No acute events overnight. Patient seen this afternoon after HD resting comfortably. No complaints at this time. Possible discharge to [facility] tomorrow Exam - Constitutional Vitals: Period Temp Pulse Resp BP Sys/Flores Pulse Ox Last 24 Hr 97.5 F-98.0 F 69-74 18-20 113-141/47-82 92-95 General appearance: over weight - Head Head exam: Present: normocephalic, atraumatic - Eye Eye exam: Present: EOMI Pupils: Present: ARNOL - ENT ENT exam: Present: normal exam - Neck Neck exam: Present: normal inspection - Respiratory Respiratory exam: Present: clear to auscultation bilaterally. Absent: rhonchi, wheezes - Cardiovascular Cardiovascular exam: Present: regular rate and rhythm - GI/Abdominal GI/Abdominal exam: Present: normal bowel sounds, soft. Absent: tenderness, rebound - Extremities Exam Extremities exam: Present: normal inspection - Back Exam Back exam: Present: normal inspection - Neurological Exam Neurological exam: Present: alert, oriented X3 - Psychiatric Psychiatric exam: Present: normal affect, normal mood - Skin Skin exam: Present: warm, intact Results - Labs CBC & BMP: 04/12/17 04:39 04/12/17 04:39 Specialty Discharge - Follow Up or Referrals Follow up with: Eric Agustin MD [Physician] - 1 Month
[2017-04-14] MEDS: hydrALAZINE 20 MG/1 ML VIAL IV SCH ×4 (00:32→09:11)
[2017-04-14] MEDS: CALCIUM ACETATE 667 MG CAPSULE PO SCH ×2 (09:10→13:25)
[2017-04-14] MEDS: PANTOPRAZOLE 40 MG TABLET PO SCH (09:10)
[2017-04-14] MEDS: DIVALPROEX ER 500 MG TABLET PO SCH (09:10)
[2017-04-14] MEDS: amLODIPine 5 MG TABLET PO SCH (09:10)
[2017-04-14] MEDS: CARVEDILOL 12.5 MG TABLET PO SCH (09:11)
[2017-04-14] MEDS: levETIRAcetam 500 MG TABLET PO SCH (09:11)
--- NOTE | 2017-04-14 10:39 | Discharge Summary ---
<Waldo Sage - Last Filed: 04/14/17 10:51> Hospital Course - Hospital Course Hospital Course: This is a 61-year-old female that presented to the ED at [facility] on the afternoon of April 11, 2017 for the evaluation of seizure activity. The patient has a very complex medical history significant for hypertension, cerebrovascular accident, seizure disorder, end-stage renal disease requiring hemodialysis, chronic neck and back pain, meningioma. The patient has a surgical history significant for arteriovenous fistula placement, and cholecystectomy. At the time of ED presentation, the patient presented grossly altered. The patient's family was present at bedside and served as historian. The reported that the patient was diagnosed with a brain tumor in 2012. He reported that the patient started experiencing seizures in 2015 and was placed on Depakote. The reported that the patient's seizure disorder has not been well controlled. He reported that the patient has been having up to 2 seizures a week. He describes the seizures as" eyes rolling in the back of her head and shaking". He reported that the activity lasted about 5 minutes in duration. He reported that the patient has not experienced any type of oral trauma and the has not experienced any type of bladder dysfunction. He reported that the patient generally awake confused. He reported that the patient is generally followed by a neurologist at [facility] in [facility] however he is not able to recall the name of the neurologist. In addition, the patient refused hemodialysis on the day of presentation. The patient was transported to the ED at [facility] for further evaluation. The patient was assessed at the time of ED presentation. The patient was given a loading dose of Keppra. CT scan reported a partially calcified 22 mm mass in the anterior aspect of the middle cranial fossae on the left extending up to the level of the posterior margin of the left anterior cranial fossa which could possibly represent a partially calcified meningioma as previously discussed. In addition the patient was noted to have some vasogenic edema in the adjacent left and poor and posterior frontal lobes. Chest x-ray reported cardiomegaly and evidence of CHF with some mild bibasilar pulmonary edema. Labs were consistent with end-stage renal disease. The patient was subsequently admitted to the hospitalist service for continuation of care and placed on the telemetry unit. The patient was admitted and stabilized. A nephrology consultation was requested and the patient underwent hemodialysis. A neurology consultation was requested. Her anti-seizure medications were restarted and adjusted. The patient 's condition gradually improved. Today, we feel that the patient is indeed appropriate for discharge to follow-up with her primary care physician and hospice case manager as indicated. Specialty Discharge - Follow Up or Referrals Follow up with: Eric Agustin MD [Physician] - 1 Month Discharge Plan - Discharge Data Disposition: Swing Bed, Hos Based, [facility] - Discharge Medications New oxyCODONE IR [Roxicodone] 5 mg PO Q4H PRN #30 tablet PRN Reason: Pain Severe (8-10) NIFEdipine XL TAB [Procardia Xl] 30 mg PO DAILY #30 tablet levETIRAcetam TAB [Keppra Tab] 500 mg PO BID #60 tablet Continue Carvedilol 12.5 mg PO BID Calcium Acetate [Phoslo] 2,001 mg PO TID W/MEALS Divalproex ER [Depakote ER] 500 mg PO BID Acetaminophen Tab [Tylenol Tab] 650 mg PO Q4H PRN #0 tablet PRN Reason: Fever, Headache, Mild Pain HYDROcodone/ACETAMIN 5-325 [[place] 5-325] 1 tablet PO BID PRN PRN Reason: Pain amLODIPine [Norvasc] 5 mg PO DAILY Omeprazole 20 mg PO DAILY - Follow Up or Referral Follow Up: Eric Agustin MD [Physician] - 1 Month - Forms/Instructions Exam - Constitutional Vitals: Period Temp Pulse Resp BP Sys/Flores Pulse Ox Last 24 Hr 97.2 F-98.2 F 62-70 18-21 115-141/55-81 92-95 DS: Provider Date of admission: 04/11/17 21:13 Primary care physician: . No PCP Attending physician on admission: Augie Gonzalez MD Consults: 04/11/17 21:21 Consult to Physician [CONS] Routine Comment: ESRD needs HD Consulting Provider: Reed Shepard When should Consulting Provider be notified: In am Person Notified: Annalise Date Notified: 04/12/17 Time Notified: 09:55 04/11/17 21:24 Consult to Physician [CONS] Routine Comment: seizures Consulting Provider: Eric Agustin When should Consulting Provider be notified: In am Person Notified: prosper Date Notified: 04/12/17 Time Notified: 08:55 04/12/17 14:24 Consult to Physical Therapy [CONS] Routine Reason for Physical Therapy: Evaluate and Treat 04/13/17 15:30 Consult to Case Mgmt/Social Srvs [CONS] Routine Reason for Case Mgmt/Social Srvs: Rehab Consult Comment: [facility] in [facility] tomorrow 04/13/17 16:26 Consult to Occupational Therapy [CONS] Routine Reason for Occupational Therapy: Evaluate and Treat Discharging clinician: Waldo Sage CNP <Ale Stewart - Last Filed: 04/14/17 10:59> Hospital Course - Time spent with patient Time with patient DS: Greater than 30 minutes (40) Diagnosis - Discharge Diagnosis (1) Meningioma Status: Chronic (2) End stage renal disease on dialysis Status: Chronic (3) Seizure disorder Status: Chronic (4) Subtherapeutic serum dilantin level Status: Resolved Discharge Plan - Discharge Data Condition at Discharge: Stable Discharge Diet: low salt diet Activity: as per physical therapy Hygiene: no restrictions Weight Bearing at Discharge: weight bear as tolerated Contact your physician if you experience:: fever over 101, Shortness of breath Exam - Constitutional General appearance: over weight - Head Head exam: Present: normocephalic, atraumatic - Eye Eye exam: Present: EOMI Pupils: Present: ARNOL - ENT ENT exam: Present: normal exam - Neck Neck exam: Present: normal inspection - Respiratory Respiratory exam: Present: clear to auscultation bilaterally - Cardiovascular Cardiovascular exam: Present: regular rate and rhythm - GI/Abdominal GI/Abdominal exam: Present: normal bowel sounds, soft. Absent: tenderness, rebound - Extremities Exam Extremities exam: Present: normal inspection - Back Exam Back exam: Present: normal inspection - Neurological Exam Neurological exam: Present: alert, oriented X3 - Psychiatric Psychiatric exam: Present: normal affect, normal mood - Skin Skin exam: Present: warm, intact
[2017-04-14 14:45] VITALS: BP 124/73
== END 2017-04-14 14:30 | DRG 100 ==
LOC: EDUNIT# → EDBD → N.ED 17:22 → N.EDINP 21:13 → SUATTDRO 21:13 → N.TELEN 21:58 → N.5E 04-12 12:24
PROVIDERS: ADMIT Internal Medicine; ATTEND Internal Medicine